=== PATIENT | female | born 1985 | race American Indian/Alaskan Native ===

== ENCOUNTER 2016-10-08 00:08 | Emergency (ER) | payer SELFPAY ==
[2016-10-08 01:16] LABS: Alanine Aminotransferase 10 units/L (7-56); Albumin/Globulin Ratio 1.5 %; Alkaline Phosphatase 32 units/L (35-129); Anion Gap 16 mmol/L; Blood Urea Nitrogen 18 mg/dL (7-17); Calcium 8.5 mg/dL (8.4-10.2); Carbon Dioxide 26 mmol/L (22-30); Chloride 100.2 mmol/L (98-107); Glucose 114 mg/dL (65-100); Lipase 16 units/L (13-60); Potassium 3.7 mmol/L (3.6-5.0); Sodium 138 mmol/L (137-145); Total Protein 6.7 g/dL (6.3-8.2)
[2016-10-08 01:18] LABS: Basophils % (Auto) 0.8 % (0.0-1.8); Eosinophils % (Auto) 2.8 % (0.0-4.3); Hematocrit 38.8 % (30.3-42.9); Hemoglobin 12.5 gm/dl (10.1-14.3); Mean Corpuscular HGB Conc 32 % (30-34); Mean Corpuscular Hemoglobin 28 pg (28-32); Mean Corpuscular Volume 86 fl (79-97); Platelet Count 192 K/mm3 (140-440)
[2016-10-08 02:30] LABS: Bilirubin,Urine NEG (Negative); Blood,Urine MOD (Negative); Ketones,Urine NEG (Negative); Leukocyte Esterase,Urine NEG (Negative); Mucus,Urine FEW /HPF; Nitrite,Urine NEG (Negative); Protein,Urine <15 mg/dL mg/dL (Negative); WBC,Urine < 1.0 /HPF (0.0-6.0)
[2016-10-08] MEDS ORDERED: TYLENOL ONE (02:39)
[2016-10-08] MEDS ORDERED: TYLENOL PO ONE (02:40)
[2016-10-08] MEDS ORDERED: DILAUDID IV ONE ×2 (08:04→09:13)
[2016-10-08 08:05] VITALS: BP 111/60
[2016-10-08] MEDS ORDERED: ZOFRAN ONE (08:05)
[2016-10-08] MEDS ORDERED: NACL 0.9% 1000 ML 1,000 ML ONE (08:06)
--- NOTE | 2016-10-08 08:08 | Emergency Department Report ---
HPI - General Chief Complaint: Abdominal Pain Time Seen by Provider: 10/08/16 07:54 - HPI HPI: This is a 30-year-old Afro-[place] female presents to the emergency department with lower abdominal and pelvic discomfort has been going on for the past 3 weeks. Over this time the patient is also been having vaginal bleeding but denies that she is on her menstrual cycle. She says that she has a history of ovarian cysts in the past and that it appears that caused her to require "emergency surgery" which they took one of the ovaries and the fallopian tube. The patient recently went to [facility] but said that they were unable to do anything for her. She does not currently have a current [employer] or primary care physician. She did not take anything for symptoms prior to presentation. No recent travel or sick contacts at home. The patient still has a uterus and right-sided ovary but says that she had bilateral fallopian tubes and the left ovary surgically removed secondary to the cysts. ED Past Medical Hx - Past Medical History Hx Asthma: Yes Additional medical history: OVARIAN CYST - Surgical History Hx Appendectomy: Yes Additional Surgical History: TUBAL LIGATION. BILATERAL OVARIES REMOVED. BREAST REDUCTION - Social History Smoking Status: Current Some Day Smoker Substance Use Type: None - Medications Home Medications: Home Medications Medication Instructions Recorded Confirmed Last Taken Type Oxycodone HCl/Acetaminophen 1 each PO Q6HR PRN #18 tablet 10/08/16 Unknown Rx [Percocet 7.5/325 mg] ED Review of Systems ROS: Stated complaint: EMESIS/STOMACH PAIN Other details as noted in HPI Physical Exam - Physical Exam Vital Signs: Vital Signs 10/08/16 10/08/16 10/08/16 00:12 02:43 03:38 Temperature 97.4 F L 98.4 F Pulse Rate 84 80 Respiratory 18 18 18 Rate Blood Pressure 127/83 125/75 Blood Pressure [Left] O2 Sat by Pulse 99 100 Oximetry 10/08/16 08:03 Temperature Pulse Rate 76 Respiratory 18 Rate Blood Pressure Blood Pressure 111/60 [Left] O2 Sat by Pulse 99 Oximetry Physical Exam: GENERAL: The patient is well-developed well-nourished. HEENT: Normocephalic. Atraumatic. Extraocular motions are intact. Patient has moist mucous membranes. Pupils equal reactive to light bilaterally. NECK: Supple. Trachea is midline. CHEST/LUNGS: Clear to auscultation. There is no respiratory distress noted. HEART/CARDIOVASCULAR: Regular. There is no tachycardia. There is no gallop rub or murmur. ABDOMEN: Abdomen is soft. Lower abdominal tenderness to palpation. No guarding or rebound tenderness. Patient has normal bowel sounds. There is no abdominal distention. SKIN: Skin is warm and dry. NEURO: The patient is awake, alert, and oriented. The patient is cooperative. The patient has no focal neurologic deficits. The patient has normal speech. MUSCULOSKELETAL: There is no tenderness or deformity. There is no limitation range of motion. There is no evidence of acute injury. ED Course Vital Signs 10/08/16 10/08/16 10/08/16 00:12 02:43 03:38 Temperature 97.4 F L 98.4 F Pulse Rate 84 80 Respiratory 18 18 18 Rate Blood Pressure 127/83 125/75 Blood Pressure [Left] O2 Sat by Pulse 99 100 Oximetry 10/08/16 08:03 Temperature Pulse Rate 76 Respiratory 18 Rate Blood Pressure Blood Pressure 111/60 [Left] O2 Sat by Pulse 99 Oximetry - Consultations Consultation #1: I spoke with the electronic equipment installer for my [employer] service who does not feel that the patient requires admission for her hemorrhagic cyst and uterine fibroid. She recommends follow-up in the office for further evaluation and possible outpatient intervention. 10/08/16 12:47 ED Medical Decision Making - Lab Data Result diagrams: 10/08/16 00:39 10/08/16 00:39 - Radiology Data Radiology results: report reviewed ULTRASOUND PELVIS DUPLEX DOPPLER COMPLETE - TRANSABDOMINAL AND TRANSVAGINAL: INDICATION: Pelvic pain, dysfunctional uterine bleeding. History of ovarian cysts. Left oophorectomy. Appendectomy in 2014. COMPARISON: 04/17/2011. FINDINGS: Transabdominal and transvaginal pelvic sonography with spectral Doppler performed in this patient with LMP of 09/27/2016 and demonstrates a 8.8 x 4.3 x 4 cm anteverted uterus with an approximately 3.8 x 2.3 x 2.7 cm possible upper anterior fibroid, endovaginal image 14. Endometrial stripe thickness approximately 0.8 cm, endovaginal image 8. Small pelvic free fluid. Right ovary is 3.5 x 2.5 x 3 cm with approximately 2.4 x 1.4 cm intrinsic complex area/possible hemorrhagic cyst, endovaginal image 22. Preserved right ovarian blood flow. No evidence to suggest right sided hydrosalpinx at this time. Left ovary again surgically absent. CONCLUSION: 1. An upper anterior uterine fibroid now noted. 2. Complex/hemorrhagic right ovarian cyst with preserved blood flow. No current sonographic evidence to suggest right hydrosalpinx. 3. Left ovary surgically absent. - Medical Decision Making 30-year-old female presents to the emergency department with a three-week history of vaginal bleeding and some chronic lower abdominal/pelvic pains. She has a history of ovarian cysts. The patient has been evaluated by multiple different hospitals for these issues lately but says she is not getting enough pain relief. Her labs are unremarkable including no significant leukocytosis. There is no urinary tract infection. The patient is not but also does not have bilateral fallopian tubes and missing the left ovary. A ultrasound was done that showed a right-sided hemorrhagic complex cyst as well as a anterior uterine fibroid. This is most likely the cause of her discomfort and dysfunction uterine bleeding. Patient was given multiple pain medications. While she continues to say that she is in significant discomfort, the patient does not appear in any distress and is seen texting and talking on her phone. The patient is asking for admission for pain control. For this reason I spoke with the [employer] service who did not feel that the patient required admission and recommends outpatient follow-up. The patient will be given some pain medication to get her to her next appointment and was given multiple [employer] referrals. She will return to the ER with any acute distress. Critical Care Time: No Critical care attestation.: If time is entered above; I have spent that time in minutes in the direct care of this critically ill patient, excluding procedure time. ED Disposition Clinical Impression: Hemorrhagic cyst of right ovary, Dysfunctional uterine bleeding Abdominal pain Qualifiers: Abdominal location: lower abdomen, unspecified Qualified Code(s): R10.30 - Lower abdominal pain, unspecified Uterine fibroid Qualifiers: Uterine leiomyoma location: unspecified location Qualified Code(s): D25.9 - Leiomyoma of uterus, unspecified Disposition: DC-01 TO HOME OR SELFCARE Is pt being admited?: No Condition: Stable Instructions: Ovarian Cyst (ED), Uterine Fibroids (ED), Abdominal Pain (ED) Additional Instructions: Please follow-up with an [employer] service regarding your abnormal vaginal bleeding , right hemorrhagic ovarian cyst and your uterine fibroid. Return to the emergency department with any worsening of her symptoms or any acute distress. You've been prescribed a medication that is sedating. Therefore this medication cannot be mixed with alcohol, or taken prior to driving, working, or being responsible for children. Prescriptions: Oxycodone HCl/Acetaminophen [Percocet 7.5/325 mg] 1 each PO Q6HR PRN #18 tablet PRN Reason: Pain Referrals: [facility] [Provider Group] - 3-5 Days [facility] [Provider Group] - 3-5 Days [facility] [facility] [facility] [Provider Group] - 3-5 Days [facility] [Primary Care Provider] - 3-5 Days Forms: Work/School Release Form(ED) Time of Disposition: 10:11
[2016-10-08] MEDS ORDERED: ZOFRAN IV ONE (08:10)
[2016-10-08] MEDS ORDERED: NACL 0.9% 1000 ML 1,000 ML IV ONE (08:10)
--- NOTE | 2016-10-08 09:20 | Ultrasound Report ---
ULTRASOUND PELVIS DUPLEX DOPPLER COMPLETE - TRANSABDOMINAL AND TRANSVAGINAL: INDICATION: Pelvic pain, dysfunctional uterine bleeding. History of ovarian cysts. Left oophorectomy. Appendectomy in 2014. COMPARISON: 04/17/2011. FINDINGS: Transabdominal and transvaginal pelvic sonography with spectral Doppler performed in this patient with LMP of 09/27/2016 and demonstrates a 8.8 x 4.3 x 4 cm anteverted uterus with an approximately 3.8 x 2.3 x 2.7 cm possible upper anterior fibroid, endovaginal image 14. Endometrial stripe thickness approximately 0.8 cm, endovaginal image 8. Small pelvic free fluid. Right ovary is 3.5 x 2.5 x 3 cm with approximately 2.4 x 1.4 cm intrinsic complex area/possible hemorrhagic cyst, endovaginal image 22. Preserved right ovarian blood flow. No evidence to suggest right sided hydrosalpinx at this time. Left ovary again surgically absent. CONCLUSION: 1. An upper anterior uterine fibroid now noted. 2. Complex/hemorrhagic right ovarian cyst with preserved blood flow. No current sonographic evidence to suggest right hydrosalpinx. 3. Left ovary surgically absent. Thank you for the opportunity to participate in this patient's care.
== END 2016-10-08 10:22 | disposition home or self-care (01) ==
LOC: ED 00:08
DX: D25.9 Leiomyoma of uterus, unspecified (principal); N83.201 Unspecified ovarian cyst, right side; J45.909 Unspecified asthma, uncomplicated; F17.210 Nicotine dependence, cigarettes, uncomplicated; Z98.51 Tubal ligation status
CPT/HCPCS: 36415; 76830; 80053; 81001; 83690; 85025; 93975; 96361; 96374; 96375; 96376; 99284; J1170; J2405; J7030

== ENCOUNTER 2016-10-16 12:59 | Emergency (ER) | payer SELFPAY ==
[2016-10-16 13:07] VITALS: BP 134/76
[2016-10-16 13:53] LABS: Bacteria,Urine 1+ /HPF (Negative); Bilirubin,Urine NEG (Negative); Blood,Urine NEG (Negative); Ketones,Urine NEG (Negative); Leukocyte Esterase,Urine NEG (Negative); Mucus,Urine 3+ /HPF; Nitrite,Urine NEG (Negative); Protein,Urine <15 mg/dL mg/dL (Negative)
--- NOTE | 2016-10-16 13:56 | Emergency Department Report ---
ED Abdominal Pain HPI - General Chief Complaint: Abdominal Pain Stated Complaint: LOW ABDOMINAL PAIN Time Seen by Provider: 10/16/16 14:10 Source: patient, family Mode of arrival: Ambulatory Limitations: No Limitations - History of Present Illness Initial Comments: Patient here complaining of lower abdominal pain for one month. Denies urinary burning frequency or urgency. Denies vaginal discharge or bleeding. Patient able to tolerate oral liquids without any nausea or vomiting. She denies any nausea or vomiting. She was seen here last week for the same complaint. Patient with history of right ovarian cyst. Pain is 10 out of 10 and feel crampy MD Complaint: abdominal pain Onset/Timin -: week(s) Location: LLQ, RLQ Radiation: none Migration to: no migration Severity: severe Severity scale (0 -10): 10 Quality: cramping Consistency: intermittent Worsens With: nothing Context: other (history of ovarian cyst) Associated Symptoms: denies: nausea, vomiting, diarrhea, fever, chills, constipation, dysuria, hematemesis, hematochezia, melena, hematuria, anorexia, syncope Treatments Prior to Arrival: other (none) - Related Data LMP Date: 09/27/16 Previous Rx's Medication Instructions Recorded Last Taken Type Oxycodone HCl/Acetaminophen 1 each PO Q6HR PRN #18 tablet 10/08/16 Unknown Rx [Percocet 7.5/325 mg] HYDROcodone/APAP 5-325 [Crawford 1 each PO Q6HR PRN #6 tablet 10/16/16 Unknown Rx 5/325] Allergies Allergy/AdvReac Type Severity Reaction Status Date / Time ketorolac tromethamine Allergy Anaphylaxis Verified 10/08/16 00:17 [From Toradol] theophylline Allergy Anaphylaxis Verified 10/08/16 00:17 tramadol Allergy Anaphylaxis Verified 10/08/16 02:43 ED Review of Systems ROS: Stated complaint: LOW ABDOMINAL PAIN Other details as noted in HPI Comment: All other systems reviewed and negative Constitutional: denies: chills, fever Eyes: denies: eye pain Respiratory: no symptoms reported Cardiovascular: denies: chest pain, palpitations, edema, syncope Gastrointestinal: abdominal pain. denies: nausea, vomiting, diarrhea, constipation, hematemesis, melena, hematochezia Genitourinary: denies: urgency, dysuria, frequency, hematuria, discharge, abnormal menses, dyspareunia Skin: denies: rash Neurological: denies: headache, weakness, numbness, paresthesias, confusion, abnormal gait, vertigo Psychiatric: denies: anxiety ED Past Medical Hx - Past Medical History Previous Medical History?: Yes Hx Asthma: Yes Additional medical history: OVARIAN CYST, Uterine fibroids - Surgical History Past Surgical History?: Yes Hx Appendectomy: Yes Hx Breast Surgery: Yes (breast reduction) Additional Surgical History: TUBAL LIGATION. BILATERAL OVARIES REMOVED. BREAST REDUCTION - Family History Family history: hypertension - Social History Smoking Status: Never Smoker Substance Use Type: Alcohol, Prescribed - Medications Home Medications: Home Medications Medication Instructions Recorded Confirmed Last Taken Type Oxycodone HCl/Acetaminophen 1 each PO Q6HR PRN #18 tablet 10/08/16 Unknown Rx [Percocet 7.5/325 mg] HYDROcodone/APAP 5-325 [Crawford 1 each PO Q6HR PRN #6 tablet 10/16/16 Unknown Rx 5/325] ED Physical Exam - General Limitations: No Limitations General appearance: alert, in no apparent distress - Head Head exam: Present: atraumatic, normocephalic, normal inspection - Eye Eye exam: Present: normal appearance, PERRL, EOMI Pupils: Present: normal accommodation - ENT ENT exam: Present: normal exam, normal orophraynx, mucous membranes moist, TM's normal bilaterally, normal external ear exam - Neck Neck exam: Present: normal inspection. Absent: tenderness, meningismus, full ROM, lymphadenopathy, thyromegaly - Respiratory Respiratory exam: Present: normal lung sounds bilaterally. Absent: respiratory distress, chest wall tenderness - Cardiovascular Cardiovascular Exam: Present: regular rate, normal rhythm, normal heart sounds - GI/Abdominal GI/Abdominal exam: Present: soft, normal bowel sounds. Absent: distended, tenderness, guarding, rebound, rigid, organomegaly, mass, bruit - External exam: Present: normal external exam. Absent: erythema, swelling, lesions, lacerations, ecchymosis, bleeding Speculum exam: Present: normal speculum exam. Absent: erythema, vaginal discharge, cervical discharge, vaginal bleeding, foreign body, tissue Bi-manual exam: Present: normal bi-manual exam, adnexal mass (right ovarian cyst on CT scan and ultrasound). Absent: cervical motion tendernes, adnexal tenderness, uterine enlargement, uterine tenderness - Extremities Exam Extremities exam: Present: normal inspection, full ROM, normal capillary refill. Absent: tenderness, pedal edema, joint swelling, calf tenderness - Back Exam Back exam: Present: normal inspection, full ROM. Absent: CVA tenderness (L), muscle spasm, paraspinal tenderness, vertebral tenderness, rash noted - Neurological Exam Neurological exam: Present: alert, oriented X3, motor sensory deficit, reflexes normal. Absent: normal gait - Psychiatric Psychiatric exam: Present: normal affect, normal mood - Skin Skin exam: Present: warm, dry, intact, normal color. Absent: rash ED Course Vital Signs 10/16/16 10/16/16 10/16/16 13:02 14:53 16:51 Temperature 98.9 F Pulse Rate 93 H Respiratory 20 18 18 Rate Blood Pressure 134/76 O2 Sat by Pulse 100 Oximetry - Reevaluation(s) Reevaluation #1: 10/16/16 16:00 Patient received morphine 4 mg IV and Zofran 4 mg IV. She voiced that her pain is still present 10/16/16 16:57 Reevaluation #2: 10/16/16 16:57 Patient received Dilaudid 1 mg IV and on route CT scan. Reevaluation #3: 10/16/16 18:53 Condition is stable and in no acute distress. I discussed with her that she needs to follow up with [facility] regarding her fibroid and her ovarian cyst ED Medical Decision Making - Lab Data Result diagrams: 10/16/16 14:06 10/16/16 14:45 Lab Results 10/16/16 10/16/16 10/16/16 Range/Units 13:29 13:29 14:06 WBC 5.9 (4.5-11.0) K/mm3 RBC 4.51 (3.65-5.03) M/mm3 Hgb 12.7 (10.1-14.3) gm/dl Hct 39.5 (30.3-42.9) % MCV 88 (79-97) fl MCH 28 (28-32) pg MCHC 32 (30-34) % RDW 14.8 (13.2-15.2) % Plt Count 177 (140-440) K/mm3 Lymph % (Auto) 21.0 (13.4-35.0) % [place] % (Auto) 10.9 H (0.0-7.3) % Eos % (Auto) 2.3 (0.0-4.3) % Baso % (Auto) 1.0 (0.0-1.8) % Lymph # 1.2 (1.2-5.4) K/mm3 [place] # 0.6 (0.0-0.8) K/mm3 Eos # 0.1 (0.0-0.4) K/mm3 Baso # 0.1 (0.0-0.1) K/mm3 Seg Neutrophils % 64.8 (40.0-70.0) % Seg Neutrophils # 3.8 (1.8-7.7) K/mm3 Sodium (137-145) mmol/L Potassium (3.6-5.0) mmol/L Chloride (98-107) mmol/L Carbon Dioxide (22-30) mmol/L Anion Gap mmol/L BUN (7-17) mg/dL Creatinine (0.7-1.2) mg/dL Estimated GFR ml/min BUN/Creatinine Ratio % Glucose (65-100) mg/dL Calcium (8.4-10.2) mg/dL Total Bilirubin (0.1-1.2) mg/dL AST (5-40) units/L ALT (7-56) units/L Alkaline Phosphatase (35-129) units/L Total Protein (6.3-8.2) g/dL Albumin (3.9-5) g/dL Albumin/Globulin Ratio % Lipase (13-60) units/L Urine Color Yellow (Yellow) Urine Turbidity Clear (Clear) Urine pH 7.0 (5.0-7.0) Ur Specific [place] 1.017 (1.003-1.030) Urine Protein <15 mg/dl (Negative) mg/dL Urine Glucose (UA) Neg (Negative) mg/dL Urine Ketones Neg (Negative) mg/dL Urine Blood Neg (Negative) Urine Nitrite Neg (Negative) Urine Bilirubin Neg (Negative) Urine Urobilinogen 4.0 (<2.0) mg/dL Ur Leukocyte Esterase Neg (Negative) Urine WBC (Auto) 1.0 (0.0-6.0) /HPF Urine RBC (Auto) 3.0 (0.0-6.0) /HPF U Epithel Cells (Auto) 3.0 (0-13.0) /HPF Urine Bacteria (Auto) 1+ (Negative) /HPF Urine Mucus 3+ /HPF Urine HCG, Qual Negative (Negative) 10/16/16 10/16/16 Range/Units 14:06 14:45 WBC (4.5-11.0) K/mm3 RBC (3.65-5.03) M/mm3 Hgb (10.1-14.3) gm/dl Hct (30.3-42.9) % MCV (79-97) fl MCH (28-32) pg MCHC (30-34) % RDW (13.2-15.2) % Plt Count (140-440) K/mm3 Lymph % (Auto) (13.4-35.0) % [place] % (Auto) (0.0-7.3) % Eos % (Auto) (0.0-4.3) % Baso % (Auto) (0.0-1.8) % Lymph # (1.2-5.4) K/mm3 [place] # (0.0-0.8) K/mm3 Eos # (0.0-0.4) K/mm3 Baso # (0.0-0.1) K/mm3 Seg Neutrophils % (40.0-70.0) % Seg Neutrophils # (1.8-7.7) K/mm3 Sodium 141 143 (137-145) mmol/L Potassium 4.3 4.1 (3.6-5.0) mmol/L Chloride 102.4 102.7 (98-107) mmol/L Carbon Dioxide 20 L 26 (22-30) mmol/L Anion Gap 23 18 mmol/L BUN 10 10 (7-17) mg/dL Creatinine 0.6 L 0.6 L (0.7-1.2) mg/dL Estimated GFR > 60 > 60 ml/min BUN/Creatinine Ratio 16.66 16.66 % Glucose 76 70 (65-100) mg/dL Calcium 9.3 9.2 (8.4-10.2) mg/dL Total Bilirubin 0.70 (0.1-1.2) mg/dL AST 11 (5-40) units/L ALT 8 (7-56) units/L Alkaline Phosphatase 31 L (35-129) units/L Total Protein 6.4 (6.3-8.2) g/dL Albumin 4.2 (3.9-5) g/dL Albumin/Globulin Ratio 1.9 % Lipase 17 (13-60) units/L Urine Color (Yellow) Urine Turbidity (Clear) Urine pH (5.0-7.0) Ur Specific [place] (1.003-1.030) Urine Protein (Negative) mg/dL Urine Glucose (UA) (Negative) mg/dL Urine Ketones (Negative) mg/dL Urine Blood (Negative) Urine Nitrite (Negative) Urine Bilirubin (Negative) Urine Urobilinogen (<2.0) mg/dL Ur Leukocyte Esterase (Negative) Urine WBC (Auto) (0.0-6.0) /HPF Urine RBC (Auto) (0.0-6.0) /HPF U Epithel Cells (Auto) (0-13.0) /HPF Urine Bacteria (Auto) (Negative) /HPF Urine Mucus /HPF Urine HCG, Qual (Negative) - Radiology Data Radiology results: image reviewed interpreted by me: Patient had ultrasound on 10/08/2016 which show an upper anterior uterine fibroids. Complex hemorrhagic right ovarian cyst but preserved blood flow. Left ovary sort surgically removed. CT scan of the abdomen and pelvis ordered IV contrast revealed patient with right ovarian cyst measuring 1.6 cm, peritoneum there is moderate amount of free fluid seen in the pelvis and in the lower quadrant more than expected for physiological fluid. Cannot exclude pelvic inflammatory process or possible ruptured ovarian cysts. Moderate amount of free fluid present within expected for physiological fluid. Cannot exclude pelvic inflammatory process. Patient had a pen that to me in 2014. - Medical Decision Making ED course: The patient that she has ovarian cysts on the right side which probably rupture and on her CT scan is showing that she has some free fluid. Patient vital signs are stable and she is not running a fever. Blood count is normal. Previous ultrasound revealed patient had right ovarian cyst. Patient had appendectomy in 2015. Patient said that she wants Percocet and not Crawford because Crawford does not work. Patient states she needs to be admitted if she has free fluid in her pelvis because that'll set up for infection. I instructed the patient that this is not an emergency where she needs to be admitted and this was discussed with attending doctor who is in agreement. An discharge home with prescription for Crawford 5/325 3 tablets and to follow up with [facility] which [facility], follow-up with surgery which is Dr. Mitchell and I also gave her outpatient clinic for follow-up primary care. Critical care attestation.: If time is entered above; I have spent that time in minutes in the direct care of this critically ill patient, excluding procedure time. ED Disposition Clinical Impression: Right ovarian cyst Abdominal pain Qualifiers: Abdominal location: lower abdomen, unspecified Qualified Code(s): R10.30 - Lower abdominal pain, unspecified Uterine fibroid Qualifiers: Uterine leiomyoma location: unspecified location Qualified Code(s): D25.9 - Leiomyoma of uterus, unspecified Disposition: - TO HOME OR SELFCARE Is pt being admited?: No Does the pt Need Aspirin: No Condition: Stable Instructions: Abdominal Pain (ED) Additional Instructions: Follow-up with [facility] as discussed. This will be [facility] and you can call them and let them know that you're seen in the emergency room. You have uterine fibroids and right ovarian cyst he can also follow up with surgery outpatient Your blood work and urinalysis were within normal limits. Please take Crawford as instructed and do not operate heavy machinery or drive a motor vehicle as this medication will cause drowsiness Prescriptions: HYDROcodone/APAP 5-325 [Crawford 5/325] 1 each PO Q6HR PRN #6 tablet PRN Reason: Pain Referrals: JOSE MITCHELL MD [Staff Physician] - 2-3 Days [facility] [Outside] - 2-3 Days [facility] [Provider Group] - 2-3 Days Forms: Accompanied Note, Work/School Release Form(ED)
[2016-10-16 14:21] LABS: Eosinophils % (Auto) 2.3 % (0.0-4.3); Hematocrit 39.5 % (30.3-42.9); Hemoglobin 12.7 gm/dl (10.1-14.3); Mean Corpuscular HGB Conc 32 % (30-34); Mean Corpuscular Hemoglobin 28 pg (28-32); Mean Corpuscular Volume 88 fl (79-97); Platelet Count 177 K/mm3 (140-440); Red Blood Count 4.51 M/mm3 (3.65-5.03); Red Cell Distribution Width 14.8 % (13.2-15.2); White Blood Count 5.9 K/mm3 (4.5-11.0)
[2016-10-16] MEDS ORDERED: ZOFRAN IV ONE (14:34)
[2016-10-16] MEDS ORDERED: MORPHINE IV ONE (14:36)
[2016-10-16 14:45] LABS: Alanine Aminotransferase 8 units/L (7-56); Albumin 4.2 g/dL (3.9-5); Albumin/Globulin Ratio 1.9 %; Alkaline Phosphatase 31 units/L (35-129); Anion Gap 23 mmol/L; BUN/Creatinine Ratio 16.66; Blood Urea Nitrogen 10 mg/dL (7-17); Calcium 9.3 mg/dL (8.4-10.2); Carbon Dioxide 20 mmol/L (22-30); Chloride 102.4 mmol/L (98-107); Glucose 76 mg/dL (65-100); Lipase 17 units/L (13-60); Potassium 4.3 mmol/L (3.6-5.0); Sodium 141 mmol/L (137-145); Total Protein 6.4 g/dL (6.3-8.2)
[2016-10-16 15:17] LABS: Anion Gap 18 mmol/L; BUN/Creatinine Ratio 16.66; Blood Urea Nitrogen 10 mg/dL (7-17); Calcium 9.2 mg/dL (8.4-10.2); Carbon Dioxide 26 mmol/L (22-30); Chloride 102.7 mmol/L (98-107); Glucose 70 mg/dL (65-100); Potassium 4.1 mmol/L (3.6-5.0); Sodium 143 mmol/L (137-145)
[2016-10-16] MEDS ORDERED: NACL ONE (16:39)
[2016-10-16] MEDS ORDERED: DILAUDID ONE (16:40)
[2016-10-16] MEDS ORDERED: DILAUDID IV ONE (16:45)
--- NOTE | 2016-10-16 18:34 | Cat Scan Report ---
FINAL REPORT PROCEDURE: CT ABDOMEN PELVIS W CON TECHNIQUE: Computerized axial tomography of the abdomen and pelvis was performed after the IV injection of iodinated nonionic contrast. HISTORY: abdominal pain COMPARISON: No prior studies are available for comparison. FINDINGS: Visualized lower thorax: No significant abnormality. Liver: Normal size and attenuation. Spleen: Normal size and attenuation. Gallbladder and biliary system: Normal. Pancreas: Normal. Adrenals: Normal. Kidneys: Normal. GI tract: The appendix is not visualized. There are clips seen adjacent to the cecum, possibly related to prior appendectomy. Correlate with patient surgical history. No bowel obstruction or for acute inflammation is identified. Lymph nodes and mesentery: Normal. Vasculature: Normal. Bladder: Normal. Reproductive organs: Probable 1.6 centimeter right ovarian cyst. Peritoneum: There is moderate amount of free fluid seen in the pelvis and in the right lower quadrant, more than expected for physiologic fluid. Cannot exclude pelvic inflammatory process or possible ruptured ovarian cyst. Musculoskeletal structures: No significant abnormality. Other: None. IMPRESSION: Moderate amount of free fluid is present, more than expected for physiologic fluid. Cannot exclude a pelvic inflammatory process or possible ovarian ruptured cyst. Note that the appendix is not visualized/evaluated. If there has not been prior appendectomy, follow-up with oral contrast could be obtained to evaluate the appendix and exclude appendicitis.
== END 2016-10-16 19:29 | disposition home or self-care (01) ==
LOC: ED 12:59
DX: N83.201 Unspecified ovarian cyst, right side (principal); D25.9 Leiomyoma of uterus, unspecified; J45.909 Unspecified asthma, uncomplicated
CPT/HCPCS: 36415; 74177; 80048; 80053; 81001; 81025; 83690; 85025; 96374; 96375; 99284; J1170; J2270; J2405; Q9967

== ENCOUNTER 2017-09-02 17:52 | Emergency (ER) | payer OTHER ==
[2017-09-02 18:26] LABS: Hematocrit 39.8 % (30.3-42.9); Mean Corpuscular HGB Conc 33 % (30-34); Mean Corpuscular Hemoglobin 28 pg (28-32); Mean Corpuscular Volume 87 fl (79-97); Platelet Count 172 K/mm3 (140-440); Red Blood Count 4.55 M/mm3 (3.65-5.03)
[2017-09-02 18:45] LABS: BUN/Creatinine Ratio 35; Blood Urea Nitrogen 21 mg/dL (7-17); Hemolysis Index 5
[2017-09-02 19:09] LABS: HCG Qualitative,Urine Negative (Negative)
[2017-09-02 19:14] LABS: Bilirubin,Urine NEG (Negative); Blood,Urine NEG (Negative); Color,Urine Yellow (Yellow); Mucus,Urine 3+ /HPF; Urobilinogen,Urine < 2.0 mg/dL (<2.0)
[2017-09-03 00:13] VITALS: BP 119/75
== END 2017-09-03 01:07 | disposition left against medical advice (07) ==
LOC: ED 17:52
DX: R10.30 Lower abdominal pain, unspecified (principal); Z53.21 Procedure and treatment not carried out due to patient leaving prior to being seen by health care provider
CPT/HCPCS: 36415; 80048; 81001; 81025; 85027

== ENCOUNTER 2017-09-03 16:31 | Emergency (ER) | payer OTHER ==
[2017-09-03 16:45] VITALS: BP 114/71
[2017-09-04] MEDS ORDERED: TYLENOL PO ONE (01:50)
--- NOTE | 2017-09-04 01:59 | Emergency Department Report ---
ED Abdominal Pain HPI - General Chief Complaint: Abdominal Pain Stated Complaint: ABD PAIN Time Seen by Provider: 09/04/17 01:36 Source: patient, EMS Mode of arrival: Ambulatory Limitations: No Limitations - History of Present Illness Initial Comments: Patient is 31 years old female with history of ovarian cyst. Presented to the ER complaining of more than 1 month history of lower abdominal pain mainly suprapubic that comes and goes. Patient denied any fever, nausea vomiting. Patient is nontoxic in no acute distress. She denied any diarrhea or urinary symptoms. Patient was seen here a few days ago had a CT abdomen and pelvis which she did not show any acute finding except for possible ovarian cyst on the right side. Patient is demanding certain kind of pain medicine mainly Percocets and Dilaudid. She is allergic to Toradol and tramadol. Patient with obvious pain medicine seeking behavior. MD Complaint: abdominal pain - Related Data Previous Rx's Medication Instructions Recorded Last Taken Type Oxycodone HCl/Acetaminophen 1 each PO Q6HR PRN #18 tablet 10/08/16 Unknown Rx [Percocet 7.5/325 mg] Ciprofloxacin HCl [Ciprofloxacin 500 mg PO Q12HR #20 tab 10/16/16 Unknown Rx TAB] HYDROcodone/APAP 5-325 [[place] 1 each PO Q6HR PRN #6 tablet 10/16/16 Unknown Rx 5/325] metroNIDAZOLE [Flagyl] 500 mg PO Q8HR #30 tablet 10/16/16 Unknown Rx Allergies Allergy/AdvReac Type Severity Reaction Status Date / Time ketorolac tromethamine Allergy Anaphylaxis Verified 10/08/16 00:17 [From Toradol] theophylline Allergy Anaphylaxis Verified 10/08/16 00:17 tramadol Allergy Anaphylaxis Verified 10/08/16 02:43 ED Review of Systems ROS: Stated complaint: ABD PAIN Other details as noted in HPI Comment: All other systems reviewed and negative Constitutional: denies: chills, fever Respiratory: denies: cough, orthopnea, shortness of breath, SOB with exertion, SOB at rest, wheezing Cardiovascular: denies: chest pain, palpitations, dyspnea on exertion, orthopnea , paroxysmal nocturnal dyspnea Gastrointestinal: abdominal pain. denies: nausea, vomiting, diarrhea, constipation, hematemesis, melena, hematochezia Neurological: denies: headache, weakness, numbness, paresthesias ED Past Medical Hx - Past Medical History Previous Medical History?: Yes Hx Asthma: Yes Additional medical history: OVARIAN CYST, Uterine fibroids - Surgical History Past Surgical History?: Yes Hx Appendectomy: Yes Hx Breast Surgery: Yes (breast reduction) Additional Surgical History: TUBAL LIGATION. left OVARy REMOVED. BREAST REDUCTION - Social History Smoking Status: Never Smoker Substance Use Type: Alcohol - Medications Home Medications: Home Medications Medication Instructions Recorded Confirmed Last Taken Type Oxycodone HCl/Acetaminophen 1 each PO Q6HR PRN #18 tablet 10/08/16 Unknown Rx [Percocet 7.5/325 mg] Ciprofloxacin HCl [Ciprofloxacin 500 mg PO Q12HR #20 tab 10/16/16 Unknown Rx TAB] HYDROcodone/APAP 5-325 [[place] 1 each PO Q6HR PRN #6 tablet 10/16/16 Unknown Rx 5/325] metroNIDAZOLE [Flagyl] 500 mg PO Q8HR #30 tablet 10/16/16 Unknown Rx ED Physical Exam - General Limitations: No Limitations General appearance: alert, in no apparent distress - Head Head exam: Present: atraumatic, normocephalic, normal inspection - ENT ENT exam: Present: normal exam, normal orophraynx, mucous membranes moist - Respiratory Respiratory exam: Present: normal lung sounds bilaterally. Absent: respiratory distress, wheezes, rales, rhonchi, stridor, chest wall tenderness, accessory muscle use, decreased breath sounds, prolonged expiratory - Cardiovascular Cardiovascular Exam: Present: regular rate, normal rhythm, normal heart sounds - GI/Abdominal GI/Abdominal exam: Present: soft, normal bowel sounds. Absent: distended, tenderness, guarding, rebound, rigid, organomegaly, mass, bruit, pulsatile mass , hernia - Extremities Exam Extremities exam: Present: normal inspection, full ROM, normal capillary refill - Back Exam Back exam: Present: normal inspection, full ROM. Absent: CVA tenderness (R), CVA tenderness (L), muscle spasm, paraspinal tenderness, vertebral tenderness - Neurological Exam Neurological exam: Present: alert, oriented X3, CN II-XII intact, normal gait, reflexes normal - Skin Skin exam: Present: warm, intact, normal color. Absent: cyanosis, diaphoretic, erythema, urticaria ED Course Vital Signs 09/03/17 09/04/17 16:42 01:58 Temperature 99 F Pulse Rate 81 Respiratory 20 16 Rate Blood Pressure 114/71 O2 Sat by Pulse 99 Oximetry Critical care attestation.: If time is entered above; I have spent that time in minutes in the direct care of this critically ill patient, excluding procedure time. ED Disposition Clinical Impression: Abdominal pain Disposition: [id number] LEFT AGAINST MED ADVICE Is pt being admited?: No Condition: Stable Instructions: Abdominal Pain (ED) Referrals: NYDIA HAMMER MD [Primary Care Provider] - 3-5 Days Forms: AMA Form
== END 2017-09-04 02:30 | disposition left against medical advice (07) ==
LOC: ED 16:31
DX: R10.30 Lower abdominal pain, unspecified (principal); J45.909 Unspecified asthma, uncomplicated; Z98.51 Tubal ligation status; Z87.42 Personal history of other diseases of the female genital tract; Z90.49 Acquired absence of other specified parts of digestive tract; Z88.6 Allergy status to analgesic agent; Z88.8 Allergy status to other drugs, medicaments and biological substances
CPT/HCPCS: 99284

== ENCOUNTER 2019-05-08 18:39 | Emergency (ER) | payer OTHER ==
[2019-05-08] MEDS ORDERED: ACETAMINOPHEN 500 MG TAB PO ONE (20:13)
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
[2019-05-08 21:05] LABS: Basophils % (Auto) 0.3 % (0.0-1.8); Eosinophils % (Auto) 0.9 % (0.0-4.3); Hematocrit 42.4 % (30.3-42.9); Hemoglobin 13.6 gm/dl (10.1-14.3); Lymphocytes # (Auto) 1.6 K/mm3 (1.2-5.4); Lymphocytes % (Auto) 33.3 % (13.4-35.0); Mean Corpuscular HGB Conc 32 % (30-34); Mean Corpuscular Volume 89 fl (79-97); Monocytes # (Auto) 0.5 K/mm3 (0.0-0.8); Monocytes % (Auto) 9.7 % (0.0-7.3); Platelet Count 137 K/mm3 (140-440); Red Blood Count 4.78 M/mm3 (3.65-5.03); Red Cell Distribution Width 14.2 % (13.2-15.2)
[2019-05-08 21:25] LABS: Alanine Aminotransferase 30 units/L (7-56); Albumin 4.3 g/dL (3.9-5); BUN/Creatinine Ratio 30; Blood Urea Nitrogen 18 mg/dL (7-17); Calcium 9.1 mg/dL (8.4-10.2); Hemolysis Index 13
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
[2019-05-08] MEDS ORDERED: ACETAMINOPHEN 500 MG TAB ONE (22:50)
[2019-05-08] MEDS ORDERED: CYCLOBENZAPRINE 10 MG TAB PO ONE (22:56)
[2019-05-08] MEDS ORDERED: diphenhydrAMINE 25 MG CAP PO ONE (22:56)
[2019-05-08] MEDS ORDERED: HYDROcodone/ACETAMINOPHEN 5-325 MG TAB PO ONE (22:56)
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
[2019-05-08 23:57] VITALS: BP 116/75
== END 2019-05-08 23:57 | disposition home or self-care (01) ==
LOC: ED 18:39
DX: S16.1XXA Strain of muscle, fascia and tendon at neck level, initial encounter (principal); S39.012A Strain of muscle, fascia and tendon of lower back, initial encounter; M25.50 Pain in unspecified joint; N83.8 Other noninflammatory disorders of ovary, fallopian tube and broad ligament; J45.909 Unspecified asthma, uncomplicated; Z90.49 Acquired absence of other specified parts of digestive tract; Z90.710 Acquired absence of both cervix and uterus; Z98.890 Other specified postprocedural states; F17.200 Nicotine dependence, unspecified, uncomplicated; Z79.899 Other long term (current) drug therapy; Z88.8 Allergy status to other drugs, medicaments and biological substances; Z88.4 Allergy status to anesthetic agent; V49.49XA Driver injured in collision with other motor vehicles in traffic accident, initial encounter; Y93.89 Activity, other specified; Y92.488 Other paved roadways as the place of occurrence of the external cause; Y99.8 Other external cause status
CPT/HCPCS: 36415; 70450; 72125; 73030; 74177; 80053; 83690; 84703; 85025; 99284; Q9967

== ENCOUNTER 2019-07-22 22:22 | Emergency (ER) | payer SELFPAY ==
[2019-07-22 22:40] VITALS: BP 112/67
== END 2019-07-23 00:46 | disposition left against medical advice (07) ==
LOC: ED 22:22
DX: M25.512 Pain in left shoulder (principal); Z53.21 Procedure and treatment not carried out due to patient leaving prior to being seen by health care provider

== ENCOUNTER 2019-07-27 04:25 | Emergency (ER) | payer SELFPAY ==
--- NOTE | 2019-07-27 05:54 | XRay Report ---
RIGHT HAND 3 VIEWS 0503 INDICATION: pain and swelling to hand COMPARISON: None available. FINDINGS: The little finger appears flex/contracted. Thumb is strongly flexed. No obvious fracture or dislocation is seen however. Signer Name: Casey Taylor MD Signed: 07/27/2019 5:50 AM Workstation Name: [id number]
[2019-07-27] MEDS ORDERED: oxyCODONE 5 MG TAB PO ONE (05:56)
--- NOTE | 2019-07-27 06:12 | Emergency Department Report ---
ED Upper Extremity Inj HPI - General Chief Complaint: Extremity Injury, Upper Stated Complaint: RT FINGER INJURY Time Seen by Provider: 07/27/19 04:42 Source: patient Mode of arrival: Ambulatory Limitations: No Limitations - History of Present Illness Initial Comments: Patient is a 33-year-old female presents emergency room with complaints of a right middle finger injury that occurred just prior to arrival. She states that she was at work when the power went out. She states she was working on a conveyor belt and had a box in her hand. She states that the box fell and she felt a popping sensation in her right middle finger. She states that she has not been able to move it secondary to discomfort. She denies any numbness or weakness. She denies ever injuring in the past. She denies any past medical history. She has an allergy to Tylenol, Toradol, theophylline, tramadol. She states that she does not have an allergy to oxycodone alone. - Related Data Previous Rx's Medication Instructions Recorded Last Taken Type Oxycodone HCl/Acetaminophen 1 each PO Q6HR PRN #18 tablet 10/08/16 Unknown Rx [Percocet 7.5/325 mg] Ciprofloxacin HCl [Ciprofloxacin 500 mg PO Q12HR #20 tab 10/16/16 Unknown Rx TAB] HYDROcodone/APAP 5-325 [[place] 1 each PO Q6HR PRN #6 tablet 10/16/16 Unknown Rx 5/325] metroNIDAZOLE [Flagyl] 500 mg PO Q8HR #30 tablet 10/16/16 Unknown Rx Cyclobenzaprine [Flexeril] 10 mg PO TID PRN #12 tablet 05/08/19 Unknown Rx Allergies Allergy/AdvReac Type Severity Reaction Status Date / Time acetaminophen [From Percocet] Allergy Angioedema Verified 05/08/19 22:50 ketorolac tromethamine Allergy Anaphylaxis Verified 10/08/16 00:17 [From Toradol] theophylline Allergy Anaphylaxis Verified 10/08/16 00:17 tramadol Allergy Anaphylaxis Verified 10/08/16 02:43 ED Review of Systems ROS: Stated complaint: RT FINGER INJURY Other details as noted in HPI Comment: All other systems reviewed and negative ED Past Medical Hx - Past Medical History Previous Medical History?: Yes Hx Asthma: Yes Additional medical history: OVARIAN CYST, Uterine fibroids - Surgical History Past Surgical History?: Yes Hx Appendectomy: Yes Hx Breast Surgery: Yes (breast reduction) Additional Surgical History: Hysterectomy. tubal ligation - Social History Smoking Status: Current Every Day Smoker Substance Use Type: None - Medications Home Medications: Home Medications Medication Instructions Recorded Confirmed Last Taken Type Oxycodone HCl/Acetaminophen 1 each PO Q6HR PRN #18 tablet 10/08/16 Unknown Rx [Percocet 7.5/325 mg] Ciprofloxacin HCl [Ciprofloxacin 500 mg PO Q12HR #20 tab 10/16/16 Unknown Rx TAB] HYDROcodone/APAP 5-325 [[place] 1 each PO Q6HR PRN #6 tablet 10/16/16 Unknown Rx 5/325] metroNIDAZOLE [Flagyl] 500 mg PO Q8HR #30 tablet 10/16/16 Unknown Rx Cyclobenzaprine [Flexeril] 10 mg PO TID PRN #12 tablet 05/08/19 Unknown Rx ED Physical Exam - General Limitations: No Limitations General appearance: alert, in no apparent distress - Head Head exam: Present: atraumatic, normocephalic - Eye Eye exam: Present: normal appearance - ENT ENT exam: Present: mucous membranes moist - Extremities Exam Extremities exam: Present: other (ttp and edema present to the right middle finger MCP joint, no ttp to the rest of the right middle finger, decreased ROM of the right middle finger secondary pain, pt is able to fully flex and extend the right thumb and pinky, no obvious deformity, neurovascularly intact, no ttp of the right hand or wrist) - Neurological Exam Neurological exam: Present: alert, oriented X3 - Psychiatric Psychiatric exam: Present: normal affect, normal mood - Skin Skin exam: Present: warm, dry, intact ED Course Vital Signs 07/27/19 07/27/19 07/27/19 04:28 06:02 06:32 Temperature 98.3 F 98.2 F Pulse Rate 104 H 84 Respiratory 18 19 16 Rate Blood Pressure 127/84 Blood Pressure 125/64 [Left] O2 Sat by Pulse 100 98 Oximetry 07/27/19 06:33 Temperature Pulse Rate Respiratory 16 Rate Blood Pressure Blood Pressure [Left] O2 Sat by Pulse Oximetry ED Medical Decision Making - Radiology Data Radiology results: report reviewed RIGHT HAND 3 VIEWS 0503 INDICATION: pain and swelling to hand COMPARISON: None available. FINDINGS: The little finger appears flex/contracted. Thumb is strongly flexed. No obvious fracture or dislocation is seen however. Signer Name: Casey Taylor MD Signed: 07/27/2019 5:50 AM Workstation Name: [id number] Transcribed By: GJ Dictated By: Casey Taylor MD Electronically Authenticated By: Casey Taylor MD Signed Date/Time: 07/27/19549 DD/ 7 TD/TT: - Medical Decision Making Patient is a 33-year-old female presents emergency room with complaints of a right middle finger injury that occurred just prior to arrival. She states that she was at work when the power went out. She states she was working on a conveyor belt and had a box in her hand. She states that the box fell and she felt a popping sensation in her right middle finger. She states that she has not been able to move it secondary to discomfort. She denies any numbness or weakness. She denies ever injuring in the past. She denies any past medical history. She has an allergy to Tylenol, Toradol, theophylline, tramadol. She states that she does not have an allergy to oxycodone alone. She will vitals with elevated heart rate which improved to normal upon repeat. On exam:ttp and edema present to the right middle finger MCP joint, no ttp to the rest of the right middle finger, decreased ROM of the right middle finger secondary pain, pt is able to fully flex and extend the right thumb and pinky, no obvious deformity, neurovascularly intact, no ttp of the right hand or wrist. XR right hand: The little finger appears flex/contracted. Thumb is strongly flexed. No obvious fracture or dislocation is seen however. Little finger and thumb x-ray findings due to patient positioning, she is able to fully flex and extend both the pinky and the thumb. Patient placed in finger splint, remained neurovascularly intact. Patient's pain treated in the emergency department as she states she did not drive. Patient will be referred to orthopedic doctor. Advised patient May take ibuprofen as needed for pain. May ice for 15 minutes at a time. Follow-up with orthopedic doctor in the next 2 to 3 days for reexamination. Return to the emergency room for any new or worsening symptoms. - Differential Diagnosis Strain, sprain, fracture, dislocation Critical care attestation.: If time is entered above; I have spent that time in minutes in the direct care of this critically ill patient, excluding procedure time. ED Disposition Clinical Impression: Pain of right middle finger Disposition: DC-01 TO HOME OR SELFCARE Is pt being admited?: No Does the pt Need Aspirin: No Condition: Stable Instructions: Finger Sprain (ED) Additional Instructions: May take ibuprofen as needed for pain. May ice for 15 minutes at a time. Follow-up with orthopedic doctor in the next 2 to 3 days for reexamination. Return to the emergency room for any new or worsening symptoms. Referrals: COLEMAN REYNOSO MD [Staff Physician] - 2-3 Days [facility] [Provider Group] - 2-3 Days Forms: Work/School Release Form(ED) Time of Disposition: 06:11 Print Language: FIJIAN
[2019-07-27 06:33] VITALS: BP 125/64
== END 2019-07-27 06:34 | disposition home or self-care (01) ==
LOC: ED 04:25
DX: M25.541 Pain in joints of right hand (principal); J45.909 Unspecified asthma, uncomplicated; F17.200 Nicotine dependence, unspecified, uncomplicated; Z79.899 Other long term (current) drug therapy; Z88.8 Allergy status to other drugs, medicaments and biological substances; Z90.49 Acquired absence of other specified parts of digestive tract; Z90.710 Acquired absence of both cervix and uterus; Z98.51 Tubal ligation status

== ENCOUNTER 2019-08-19 01:40 | Emergency (ER) | payer SELFPAY ==
[2019-08-19 02:13] LABS: Basophils % (Auto) 0.5 % (0.0-1.8); Eosinophils # (Auto) 0.2 K/mm3 (0.0-0.4); Eosinophils % (Auto) 2.4 % (0.0-4.3); Hematocrit 39.6 % (30.3-42.9); Hemoglobin 12.9 gm/dl (10.1-14.3); Lymphocytes # (Auto) 1.6 K/mm3 (1.2-5.4); Lymphocytes % (Auto) 20.2 % (13.4-35.0); Mean Corpuscular HGB Conc 33 % (30-34); Mean Corpuscular Volume 90 fl (79-97); Monocytes # (Auto) 0.7 K/mm3 (0.0-0.8); Monocytes % (Auto) 8.7 % (0.0-7.3); Platelet Count 161 K/mm3 (140-440); Red Blood Count 4.39 M/mm3 (3.65-5.03)
[2019-08-19 02:19] LABS: Bilirubin,Urine NEG (Negative); Blood,Urine NEG (Negative); Color,Urine Yellow (Yellow); Mucus,Urine FEW /HPF; Protein,Urine <15 mg/dL mg/dL (Negative)
[2019-08-19 02:30] LABS: Alanine Aminotransferase 16 units/L (7-56); BUN/Creatinine Ratio 33; Blood Urea Nitrogen 23 mg/dL (7-17); Calcium 9.2 mg/dL (8.4-10.2); Hemolysis Index 8
[2019-08-19] MEDS ORDERED: ALUM-MAG HYDROXIDE-SIMETHICONE 200-200-20MG/5ML ORAL LIQD 30 ML PO ONE (03:30)
[2019-08-19] MEDS ORDERED: FAMOTIDINE 20 MG TAB PO ONE (03:30)
[2019-08-19] MEDS ORDERED: ONDANSETRON 4 MG ODT TAB PO ONE (03:30)
[2019-08-19] MEDS ORDERED: HYOSCYAMINE SUBL 0.125 MG TAB SL ONE (03:30)
--- NOTE | 2019-08-19 03:36 | Emergency Department Report ---
ED Abdominal Pain HPI - General Chief Complaint: Abdominal Pain Stated Complaint: ABDOMINAL PAIN Time Seen by Provider: 08/19/19 03:09 Source: patient Mode of arrival: Ambulatory Limitations: No Limitations - History of Present Illness Initial Comments: Patient is a 33-year-old female presents emergency room complaints of upper abdominal pain that began 3 weeks ago. She states for the last 3 to 4 days she has had associated nausea vomiting. She states that she has had approximately 2 episodes of vomiting a day. She denies any hematemesis. She states that she has also felt constipated over the last week. She states that she had a bowel movement yesterday. She states she is able to pass gas without difficulty. She states that she is able to tolerate p.o. intake. She denies any diarrhea, fever, urinary symptoms, hematochezia, melena. She has a past medical history of asthma. She has an abdominal surgical history of hysterectomy, appendectomy, tubal ligation. Patient was evaluated in the emergency department on 08/17/2019 for the same complaint and had normal laboratory studies and a normal abdominal ultrasound at that time. Patient left AMA prior to receiving her ultrasound results and was not prescribed medications. - Related Data Previous Rx's Medication Instructions Recorded Last Taken Type Oxycodone HCl/Acetaminophen 1 each PO Q6HR PRN #18 tablet 10/08/16 Unknown Rx [Percocet 7.5/325 mg] Ciprofloxacin HCl [Ciprofloxacin 500 mg PO Q12HR #20 tab 10/16/16 Unknown Rx TAB] HYDROcodone/APAP 5-325 [[place] 1 each PO Q6HR PRN #6 tablet 10/16/16 Unknown Rx 5/325] metroNIDAZOLE [Flagyl] 500 mg PO Q8HR #30 tablet 10/16/16 Unknown Rx Cyclobenzaprine [Flexeril] 10 mg PO TID PRN #12 tablet 05/08/19 Unknown Rx Docusate Sodium [Colace] 100 mg PO BID PRN #20 capsule 08/19/19 Unknown Rx Famotidine [Pepcid] 40 mg PO QHS #30 tablet 08/19/19 Unknown Rx Ondansetron [Zofran Odt] 4 mg PO Q8HR PRN #12 tab.rapdis 08/19/19 Unknown Rx Polyethylene Glycol 3350 [Miralax] 7 gm PO DAILY PRN #1 powder 08/19/19 Unknown Rx Allergies Allergy/AdvReac Type Severity Reaction Status Date / Time acetaminophen [From Percocet] Allergy Angioedema Verified 05/08/19 22:50 ketorolac tromethamine Allergy Anaphylaxis Verified 10/08/16 00:17 [From Toradol] theophylline Allergy Anaphylaxis Verified 10/08/16 00:17 tramadol Allergy Anaphylaxis Verified 10/08/16 02:43 ED Review of Systems ROS: Stated complaint: ABDOMINAL PAIN Other details as noted in HPI Comment: All other systems reviewed and negative ED Past Medical Hx - Past Medical History Previous Medical History?: Yes Hx Asthma: Yes Additional medical history: OVARIAN CYST, Uterine fibroids - Surgical History Past Surgical History?: Yes Hx Appendectomy: Yes Hx Breast Surgery: Yes (breast reduction) Additional Surgical History: Hysterectomy. tubal ligation - Social History Smoking Status: Never Smoker Substance Use Type: Alcohol - Medications Home Medications: Home Medications Medication Instructions Recorded Confirmed Last Taken Type Oxycodone HCl/Acetaminophen 1 each PO Q6HR PRN #18 tablet 10/08/16 Unknown Rx [Percocet 7.5/325 mg] Ciprofloxacin HCl [Ciprofloxacin 500 mg PO Q12HR #20 tab 10/16/16 Unknown Rx TAB] HYDROcodone/APAP 5-325 [[place] 1 each PO Q6HR PRN #6 tablet 10/16/16 Unknown Rx 5/325] metroNIDAZOLE [Flagyl] 500 mg PO Q8HR #30 tablet 10/16/16 Unknown Rx Cyclobenzaprine [Flexeril] 10 mg PO TID PRN #12 tablet 05/08/19 Unknown Rx Docusate Sodium [Colace] 100 mg PO BID PRN #20 capsule 08/19/19 Unknown Rx Famotidine [Pepcid] 40 mg PO QHS #30 tablet 08/19/19 Unknown Rx Ondansetron [Zofran Odt] 4 mg PO Q8HR PRN #12 tab.rapdis 08/19/19 Unknown Rx Polyethylene Glycol 3350 [Miralax] 7 gm PO DAILY PRN #1 powder 08/19/19 Unknown Rx ED Physical Exam - General Limitations: No Limitations General appearance: alert, in no apparent distress - Head Head exam: Present: atraumatic, normocephalic - Eye Eye exam: Present: normal appearance - ENT ENT exam: Present: mucous membranes moist - Respiratory Respiratory exam: Present: normal lung sounds bilaterally. Absent: respiratory distress, wheezes, rales, rhonchi, stridor, chest wall tenderness, accessory muscle use, decreased breath sounds, prolonged expiratory - Cardiovascular Cardiovascular Exam: Present: regular rate, normal rhythm, normal heart sounds. Absent: systolic murmur, diastolic murmur, rubs, gallop - GI/Abdominal GI/Abdominal exam: Present: soft, tenderness (mild epigastric), normal bowel sounds, other (negative murphys sign). Absent: distended, guarding, rebound, rigid - Neurological Exam Neurological exam: Present: alert, oriented X3 - Psychiatric Psychiatric exam: Present: normal affect, normal mood - Skin Skin exam: Present: warm, dry, intact ED Course Vital Signs 08/19/19 08/19/19 01:44 05:05 Temperature 98.7 F Pulse Rate 87 82 Respiratory 18 16 Rate Blood Pressure 130/78 O2 Sat by Pulse 100 99 Oximetry ED Medical Decision Making - Lab Data Result diagrams: 08/19/19 01:53 08/19/19 01:53 Lab Results 08/19/19 08/19/19 08/19/19 Range/Units 01:53 01:53 01:56 WBC 7.9 (4.5-11.0) K/mm3 RBC 4.39 (3.65-5.03) M/mm3 Hgb 12.9 (10.1-14.3) gm/dl Hct 39.6 (30.3-42.9) % MCV 90 (79-97) fl MCH 29 (28-32) pg MCHC 33 (30-34) % RDW 14.0 (13.2-15.2) % Plt Count 161 (140-440) K/mm3 Lymph % (Auto) 20.2 (13.4-35.0) % [place] % (Auto) 8.7 H (0.0-7.3) % Eos % (Auto) 2.4 (0.0-4.3) % Baso % (Auto) 0.5 (0.0-1.8) % Lymph # 1.6 (1.2-5.4) K/mm3 [place] # 0.7 (0.0-0.8) K/mm3 Eos # 0.2 (0.0-0.4) K/mm3 Baso # 0.0 (0.0-0.1) K/mm3 Seg Neutrophils % 68.2 (40.0-70.0) % Seg Neutrophils # 5.4 (1.8-7.7) K/mm3 Sodium 141 (137-145) mmol/L Potassium 3.8 (3.6-5.0) mmol/L Chloride 103.4 (98-107) mmol/L Carbon Dioxide 26 (22-30) mmol/L Anion Gap 15 mmol/L BUN 23 H (7-17) mg/dL Creatinine 0.7 (0.7-1.2) mg/dL Estimated GFR > 60 ml/min BUN/Creatinine Ratio 33 % Glucose 89 (65-100) mg/dL Calcium 9.2 (8.4-10.2) mg/dL Total Bilirubin 0.30 (0.1-1.2) mg/dL AST 17 (5-40) units/L ALT 16 (7-56) units/L Alkaline Phosphatase 36 (35-129) units/L Total Protein 6.9 (6.3-8.2) g/dL Albumin 4.0 (3.9-5) g/dL Albumin/Globulin Ratio 1.4 % Lipase 37 (13-60) units/L Urine Color Yellow (Yellow) Urine Turbidity Slightly-cloudy (Clear) Urine pH 7.0 (5.0-7.0) Ur Specific [place] 1.019 (1.003-1.030) Urine Protein <15 mg/dl (Negative) mg/dL Urine Glucose (UA) Neg (Negative) mg/dL Urine Ketones Neg (Negative) mg/dL Urine Blood Neg (Negative) Urine Nitrite Neg (Negative) Urine Bilirubin Neg (Negative) Urine Urobilinogen 4.0 (<2.0) mg/dL Ur Leukocyte Esterase Tr (Negative) Urine WBC (Auto) 3.0 (0.0-6.0) /HPF Urine RBC (Auto) 2.0 (0.0-6.0) /HPF U Epithel Cells (Auto) 8.0 (0-13.0) /HPF Urine Mucus Few /HPF - Medical Decision Making Patient is a 33-year-old female presents emergency room complaints of upper abdominal pain that began 3 weeks ago. She states for the last 3 to 4 days she has had associated nausea vomiting. She states that she has had approximately 2 episodes of vomiting a day. She denies any hematemesis. She states that she has also felt constipated over the last week. She states that she had a bowel movement yesterday. She states she is able to pass gas without difficulty. She states that she is able to tolerate p.o. intake. She denies any diarrhea, fever, urinary symptoms, hematochezia, melena. She has a past medical history of asthma. She has an abdominal surgical history of hysterectomy, appendectomy, tubal ligation. Patient was evaluated in the emergency department on 08/17/2019 for the same complaint and had normal laboratory studies and a normal abdominal ultrasound at that time. Patient left AMA prior to receiving her ultrasound results and was not prescribed medications. Vitals are normal. On exam mild epigastric tenderness to palpation, no guarding, no rebound, negative Ca sign, no peritoneal signs, normal bowel sounds. Labs are normal. UA is within normal limits. Patient given Pepcid, Maalox, Zofran, Levsin and symptoms improved. She was able to tolerate p.o. intake without any difficulty. Patient given prescription for Pepcid, Zofran, Colace, MiraLAX. Advised patient Please take medication as prescribed. Increase your water intake. Please follow the diet for acid reflux and ulcers. Increase your fiber intake. Follow-up with a GI doctor. Follow-up with a primary care doctor. Return to the emergency room for any new or worsening symptoms - Differential Diagnosis GERD, PUD, H. pylori, cholecystitis, cholelithiasis, pancreatitis, SBO Critical care attestation.: If time is entered above; I have spent that time in minutes in the direct care of this critically ill patient, excluding procedure time. ED Disposition Clinical Impression: Upper abdominal pain Nausea and vomiting Qualifiers: Vomiting type: unspecified Vomiting Intractability: non-intractable Qualified Code(s): R11.2 - Nausea with vomiting, unspecified Constipation Qualifiers: Constipation type: unspecified constipation type Qualified Code(s): K59.00 - Constipation, unspecified Disposition: DC-01 TO HOME OR SELFCARE Is pt being admited?: No Does the pt Need Aspirin: No Condition: Stable Instructions: Peptic Ulcer (ED), Constipation (ED), High Fiber Diet (ED), Diet for Ulcers and Gastritis (ED) Additional Instructions: Please take medication as prescribed. Increase your water intake. Please follow the diet for acid reflux and ulcers. Increase your fiber intake. Follow-up with a GI doctor. Follow-up with a primary care doctor. Return to the emergency room for any new or worsening symptoms Prescriptions: Famotidine [Pepcid] 40 mg PO QHS #30 tablet Docusate Sodium [Colace] 100 mg PO BID PRN #20 capsule PRN Reason: constipation Polyethylene Glycol 3350 [Miralax] 7 gm PO DAILY PRN #1 powder PRN Reason: Constipation Ondansetron [Zofran Odt] 4 mg PO Q8HR PRN #12 tab.rapdis PRN Reason: Nausea And Vomiting Referrals: [facility] [Provider Group] - 3-5 Days BOBBY GAUTAM MD [Staff Physician] - 3-5 Days Forms: Work/School Release Form(ED) Time of Disposition: 04:23 Print Language: PALESTINIAN
[2019-08-19 03:37] VITALS: BP 130/78
== END 2019-08-19 05:03 | disposition home or self-care (01) ==
LOC: ED 01:40
DX: K59.00 Constipation, unspecified (principal); R10.10 Upper abdominal pain, unspecified; R11.2 Nausea with vomiting, unspecified; J45.909 Unspecified asthma, uncomplicated; Z90.710 Acquired absence of both cervix and uterus; Z90.49 Acquired absence of other specified parts of digestive tract; Z98.890 Other specified postprocedural states; Z79.899 Other long term (current) drug therapy; Z98.51 Tubal ligation status; Z88.8 Allergy status to other drugs, medicaments and biological substances
CPT/HCPCS: 36415; 80053; 81001; 83690; 85025; Q0162

== ENCOUNTER 2019-08-23 12:57 | Emergency (ER) | payer SELFPAY ==
[2019-08-23 13:16] VITALS: BP 125/70
--- NOTE | 2019-08-23 13:23 | Emergency Department Report ---
ED General Adult HPI - General Chief complaint: Extremity Injury, Upper Stated complaint: RT KNUCKLE PAIN Time Seen by Provider: 08/23/19 13:14 Source: patient Mode of arrival: Ambulatory Limitations: No Limitations - History of Present Illness Severity scale (0 -10): 10 - Related Data Previous Rx's Medication Instructions Recorded Last Taken Type Oxycodone HCl/Acetaminophen 1 each PO Q6HR PRN #18 tablet 10/08/16 Unknown Rx [Percocet 7.5/325 mg] Ciprofloxacin HCl [Ciprofloxacin 500 mg PO Q12HR #20 tab 10/16/16 Unknown Rx TAB] HYDROcodone/APAP 5-325 [[place] 1 each PO Q6HR PRN #6 tablet 10/16/16 Unknown Rx 5/325] metroNIDAZOLE [Flagyl] 500 mg PO Q8HR #30 tablet 10/16/16 Unknown Rx Cyclobenzaprine [Flexeril] 10 mg PO TID PRN #12 tablet 05/08/19 Unknown Rx Docusate Sodium [Colace] 100 mg PO BID PRN #20 capsule 08/19/19 Unknown Rx Famotidine [Pepcid] 40 mg PO QHS #30 tablet 08/19/19 Unknown Rx Ondansetron [Zofran Odt] 4 mg PO Q8HR PRN #12 tab.rapdis 08/19/19 Unknown Rx Polyethylene Glycol 3350 [Miralax] 7 gm PO DAILY PRN #1 powder 08/19/19 Unknown Rx Allergies Allergy/AdvReac Type Severity Reaction Status Date / Time acetaminophen [From Percocet] Allergy Angioedema Verified 05/08/19 22:50 ketorolac tromethamine Allergy Anaphylaxis Verified 10/08/16 00:17 [From Toradol] theophylline Allergy Anaphylaxis Verified 10/08/16 00:17 tramadol Allergy Anaphylaxis Verified 10/08/16 02:43 ED Review of Systems ROS: Stated complaint: RT KNUCKLE PAIN Other details as noted in HPI ED Past Medical Hx - Past Medical History Previous Medical History?: Yes Hx Asthma: Yes Additional medical history: OVARIAN CYST, Uterine fibroids - Surgical History Past Surgical History?: Yes Hx Appendectomy: Yes Hx Breast Surgery: Yes (breast reduction) Additional Surgical History: Hysterectomy. tubal ligation - Social History Smoking Status: Current Every Day Smoker Substance Use Type: Alcohol - Medications Home Medications: Home Medications Medication Instructions Recorded Confirmed Last Taken Type Oxycodone HCl/Acetaminophen 1 each PO Q6HR PRN #18 tablet 10/08/16 Unknown Rx [Percocet 7.5/325 mg] Ciprofloxacin HCl [Ciprofloxacin 500 mg PO Q12HR #20 tab 10/16/16 Unknown Rx TAB] HYDROcodone/APAP 5-325 [[place] 1 each PO Q6HR PRN #6 tablet 10/16/16 Unknown Rx 5/325] metroNIDAZOLE [Flagyl] 500 mg PO Q8HR #30 tablet 10/16/16 Unknown Rx Cyclobenzaprine [Flexeril] 10 mg PO TID PRN #12 tablet 05/08/19 Unknown Rx Docusate Sodium [Colace] 100 mg PO BID PRN #20 capsule 08/19/19 Unknown Rx Famotidine [Pepcid] 40 mg PO QHS #30 tablet 08/19/19 Unknown Rx Ondansetron [Zofran Odt] 4 mg PO Q8HR PRN #12 tab.rapdis 08/19/19 Unknown Rx Polyethylene Glycol 3350 [Miralax] 7 gm PO DAILY PRN #1 powder 08/19/19 Unknown Rx ED Physical Exam - General Limitations: No Limitations ED Course Vital Signs 08/23/19 08/23/19 13:13 13:16 Temperature 99.0 F Pulse Rate 100 H Respiratory 15 Rate Blood Pressure 125/70 O2 Sat by Pulse 100 Oximetry ED Medical Decision Making - Radiology Data Radiology results: report reviewed RIGHT HAND 3 VIEWS INDICATION / CLINICAL INFORMATION: 3rd MCP pain and swelling. COMPARISON: 07/27/2019 FINDINGS: Mild contraction of the little finger, less so than on the prior examination dated 07/27/2019. No other significant skeletal abnormality. Critical care attestation.: If time is entered above; I have spent that time in minutes in the direct care of this critically ill patient, excluding procedure time. ED Disposition Condition: Stable
--- NOTE | 2019-08-23 13:58 | XRay Report ---
RIGHT HAND 3 VIEWS INDICATION / CLINICAL INFORMATION: 3rd MCP pain and swelling. COMPARISON: 07/27/2019 FINDINGS: Mild contraction of the little finger, less so than on the prior examination dated 07/27/2019. No othe r significant skeletal abnormality. Signer Name: Pedro Akhtar MD FACRavi Signed: 08/23/2019 1:53 PM Workstation Name: [id number]
--- NOTE | 2019-08-23 14:39 | Emergency Department Report ---
Chief Complaint: Extremity Injury, Upper Stated Complaint: RT KNUCKLE PAIN Time Seen by Provider: 08/23/19 13:14 - Exam Vital Signs: Vital Signs 08/23/19 08/23/19 13:13 13:16 Temperature 99.0 F Pulse Rate 100 H Respiratory 15 Rate Blood Pressure 125/70 O2 Sat by Pulse 100 Oximetry MSE screening note: Focused history and physical exam performed. Due to findings the following was ordered: ED Medical Decision Making - Radiology Data Radiology results: report reviewed RIGHT HAND 3 VIEWS INDICATION / CLINICAL INFORMATION: 3rd MCP pain and swelling. COMPARISON: 07/27/2019 FINDINGS: Mild contraction of the little finger, less so than on the prior examination dated 07/27/2019. No other significant skeletal abnormality. ED Disposition for MSE Clinical Impression: Hand pain, right Disposition: Z-07 MED SCREENING EXAM-LEFT Is pt being admited?: No Condition: Stable Instructions: Arthralgia (ED) Referrals: COLEMAN REYNOSO MD [Staff Physician] - 3-5 Days Forms: Work/School Release Form(ED)
--- NOTE | 2019-08-23 14:56 | Emergency Department Report ---
ED General Adult HPI - General Chief complaint: Extremity Injury, Upper Stated complaint: RT KNUCKLE PAIN Time Seen by Provider: 08/23/19 13:14 Source: patient Mode of arrival: Ambulatory Limitations: No Limitations - History of Present Illness Initial comments: 33-year-old -[place] Citizen female patient presents with complaints of sudden worsening of right MCP joint pain x 2 days. Patient was seen here on 07/27/2019 with complaints of pain in this joint after a work-related injury. Patient states she is currently following with Dr. Alejo, orthopedics, and is scheduled for an MRI on Saturday of this week. She rates her current pain as a 9/10 in severity and denies any new injuries. She also denies any loss of sensation, but states she has decreased flexion of the hand due to pain. Severity scale (0 -10): 10 - Related Data Previous Rx's Medication Instructions Recorded Last Taken Type Oxycodone HCl/Acetaminophen 1 each PO Q6HR PRN #18 tablet 10/08/16 Unknown Rx [Percocet 7.5/325 mg] Ciprofloxacin HCl [Ciprofloxacin 500 mg PO Q12HR #20 tab 10/16/16 Unknown Rx TAB] HYDROcodone/APAP 5-325 [[place] 1 each PO Q6HR PRN #6 tablet 10/16/16 Unknown Rx 5/325] metroNIDAZOLE [Flagyl] 500 mg PO Q8HR #30 tablet 10/16/16 Unknown Rx Cyclobenzaprine [Flexeril] 10 mg PO TID PRN #12 tablet 05/08/19 Unknown Rx Docusate Sodium [Colace] 100 mg PO BID PRN #20 capsule 08/19/19 Unknown Rx Famotidine [Pepcid] 40 mg PO QHS #30 tablet 08/19/19 Unknown Rx Ondansetron [Zofran Odt] 4 mg PO Q8HR PRN #12 tab.rapdis 08/19/19 Unknown Rx Polyethylene Glycol 3350 [Miralax] 7 gm PO DAILY PRN #1 powder 08/19/19 Unknown Rx Acetaminophen/Codeine [Tylenol 1 tab PO Q8H PRN #6 tab 08/23/19 Unknown Rx /Codeine # 3 tab] Diclofenac Sodium 50 mg PO TID PRN #21 tablet. 08/23/19 Unknown Rx Allergies Allergy/AdvReac Type Severity Reaction Status Date / Time acetaminophen [From Percocet] Allergy Angioedema Verified 05/08/19 22:50 ketorolac tromethamine Allergy Anaphylaxis Verified 10/08/16 00:17 [From Toradol] theophylline Allergy Anaphylaxis Verified 10/08/16 00:17 tramadol Allergy Anaphylaxis Verified 10/08/16 02:43 ED Review of Systems ROS: Stated complaint: RT KNUCKLE PAIN Other details as noted in HPI Constitutional: denies: chills, fever Respiratory: denies: cough, shortness of breath Gastrointestinal: denies: nausea, vomiting Musculoskeletal: joint swelling, arthralgia Skin: denies: rash, lesions, change in color ED Past Medical Hx - Past Medical History Previous Medical History?: Yes Hx Asthma: Yes Additional medical history: OVARIAN CYST, Uterine fibroids - Surgical History Past Surgical History?: Yes Hx Appendectomy: Yes Hx Breast Surgery: Yes (breast reduction) Additional Surgical History: Hysterectomy. tubal ligation - Social History Smoking Status: Current Every Day Smoker Substance Use Type: Alcohol - Medications Home Medications: Home Medications Medication Instructions Recorded Confirmed Last Taken Type Oxycodone HCl/Acetaminophen 1 each PO Q6HR PRN #18 tablet 10/08/16 Unknown Rx [Percocet 7.5/325 mg] Ciprofloxacin HCl [Ciprofloxacin 500 mg PO Q12HR #20 tab 10/16/16 Unknown Rx TAB] HYDROcodone/APAP 5-325 [[place] 1 each PO Q6HR PRN #6 tablet 10/16/16 Unknown Rx 5/325] metroNIDAZOLE [Flagyl] 500 mg PO Q8HR #30 tablet 10/16/16 Unknown Rx Cyclobenzaprine [Flexeril] 10 mg PO TID PRN #12 tablet 05/08/19 Unknown Rx Docusate Sodium [Colace] 100 mg PO BID PRN #20 capsule 08/19/19 Unknown Rx Famotidine [Pepcid] 40 mg PO QHS #30 tablet 08/19/19 Unknown Rx Ondansetron [Zofran Odt] 4 mg PO Q8HR PRN #12 tab.rapdis 08/19/19 Unknown Rx Polyethylene Glycol 3350 [Miralax] 7 gm PO DAILY PRN #1 powder 08/19/19 Unknown Rx Acetaminophen/Codeine [Tylenol 1 tab PO Q8H PRN #6 tab 08/23/19 Unknown Rx /Codeine # 3 tab] Diclofenac Sodium 50 mg PO TID PRN #21 tablet. 08/23/19 Unknown Rx ED Physical Exam - General Limitations: No Limitations General appearance: alert, in no apparent distress - Head Head exam: Present: atraumatic, normocephalic - Eye Eye exam: Absent: scleral icterus - Neck Neck exam: Present: full ROM - Respiratory Respiratory exam: Absent: respiratory distress - Cardiovascular Cardiovascular Exam: Present: regular rate, normal rhythm - Extremities Exam Extremities exam: Present: other (swelling and tenderness noted to the dorsal aspet oft he right middle finger MCP joint. No erythema, decreased sensation, or decreased ROM noted. Noral capillary refill is also noted of the right hand ) - Neurological Exam Neurological exam: Present: alert, oriented X3. Absent: motor sensory deficit - Psychiatric Psychiatric exam: Present: normal affect, normal mood - Skin Skin exam: Present: warm, dry, intact, normal color. Absent: rash, cyanosis, erythema, ecchymosis ED Course Vital Signs 08/23/19 08/23/19 13:13 13:16 Temperature 99.0 F Pulse Rate 100 H Respiratory 15 Rate Blood Pressure 125/70 O2 Sat by Pulse 100 Oximetry ED Medical Decision Making - Radiology Data Radiology results: report reviewed RIGHT HAND 3 VIEWS INDICATION / CLINICAL INFORMATION: 3rd MCP pain and swelling. COMPARISON: 07/27/2019 FINDINGS: Mild contraction of the little finger, less so than on the prior examination dated 07/27/2019. No other significant skeletal abnormality. - Medical Decision Making Patient here with complaints of sudden worsening of her right hand pain after a work-related injury a month ago. Patient was seen here for the same in June. She is currently following with orthopedics and has an MRI scheduled for Saturday. X-ray of the hand is negative for any acute changes. Patient's vitals are stable. She is stable for discharge home. Recommend follow-up with her employment service specialist. Strict return precautions were discussed in detail with patient who verbalizes understanding. Critical care attestation.: If time is entered above; I have spent that time in minutes in the direct care of this critically ill patient, excluding procedure time. ED Disposition Clinical Impression: Hand pain, right, Finger pain, right Disposition: - TO HOME OR SELFCARE Is pt being admited?: No Condition: Stable Instructions: Arthralgia (ED) Additional Instructions: Please follow-up with your employment service specialist in 2 days for further treatment and evaluation Prescriptions: Diclofenac Sodium 50 mg PO TID PRN #21 tablet. PRN Reason: pain Acetaminophen/Codeine [Tylenol /Codeine # 3 tab] 1 tab PO Q8H PRN #6 tab PRN Reason: Pain , Severe (7-10) Referrals: PRIMARY CARE, [Primary Care Provider] - 3-5 Days Forms: Work/School Release Form(ED)
== END 2019-08-23 15:21 | disposition home or self-care (01) ==
LOC: ED 12:57
DX: M79.644 Pain in right finger(s) (principal); J45.909 Unspecified asthma, uncomplicated; F17.200 Nicotine dependence, unspecified, uncomplicated; Z90.710 Acquired absence of both cervix and uterus; Z90.49 Acquired absence of other specified parts of digestive tract; Z88.6 Allergy status to analgesic agent

== ENCOUNTER 2020-01-07 11:02 | Observation (INO) | payer SELFPAY ==
[2020-01-07] MEDS ORDERED: ALBUTEROL 2.5 MG/3 ML NEBU IH ONE (11:05)
[2020-01-07] MEDS ORDERED: dexAMETHasone 20 MG/5 ML VIAL IM ONE (11:05)
[2020-01-07] MEDS ORDERED: IPRATROPIUM 0.02% NEBU 2.5 ML IH ONE (11:05)
[2020-01-07] MEDS ORDERED: MAGNESIUM SULFATE 2 GM/50 ML BAG IV ONE (12:16)
--- NOTE | 2020-01-07 13:00 | Emergency Department Report ---
ED Asthma HPI - General Chief Complaint: Adult Asthma Stated Complaint: ASTHMA Time Seen by Provider: 01/07/20 11:05 Source: patient Mode of arrival: Ambulatory Limitations: No Limitations - History of Present Illness Initial Comments: This is a 34-year-old female nontoxic, well nourished in appearance, with some SOB distress presents to the ED with c/o of acute on chronic asthma exacerbation. Patient stated she is out of her albuterol inhaler 1 month. Patient denies any cough. Patient denies any sick contact. Patient denies any recent travels, long car, recent hospital stays. Patient denies any calf pain or calf tenderness. Patient denies any chest pain, fever, chills, nausea, vomiting, hemoptysis, numbness, tingling, headache or stiff neck. Past medical history includes asthma. MD Complaint: "asthma attack", shortness of breath, wheezing -: days(s) Asthma History: childhood onset Severity: moderate Associated Symptoms: none - Related Data Current Asthma Therapy: none Previous Rx's Medication Instructions Recorded Last Taken Type Oxycodone HCl/Acetaminophen 1 each PO Q6HR PRN #18 tablet 10/08/16 Unknown Rx [Percocet 7.5/325 mg] Ciprofloxacin HCl [Ciprofloxacin 500 mg PO Q12HR #20 tab 10/16/16 Unknown Rx TAB] HYDROcodone/APAP 5-325 [[place] 1 each PO Q6HR PRN #6 tablet 10/16/16 Unknown Rx 5/325] metroNIDAZOLE [Flagyl] 500 mg PO Q8HR #30 tablet 10/16/16 Unknown Rx Cyclobenzaprine [Flexeril] 10 mg PO TID PRN #12 tablet 05/08/19 Unknown Rx Docusate Sodium [Colace] 100 mg PO BID PRN #20 capsule 08/19/19 Unknown Rx Famotidine [Pepcid] 40 mg PO QHS #30 tablet 08/19/19 Unknown Rx Ondansetron [Zofran Odt] 4 mg PO Q8HR PRN #12 tab.rapdis 08/19/19 Unknown Rx Polyethylene Glycol 3350 [Miralax] 7 gm PO DAILY PRN #1 powder 08/19/19 Unknown Rx Acetaminophen/Codeine [Tylenol 1 tab PO Q8H PRN #6 tab 08/23/19 Unknown Rx /Codeine # 3 tab] Diclofenac Sodium 50 mg PO TID PRN #21 tablet. 08/23/19 Unknown Rx Allergies Allergy/AdvReac Type Severity Reaction Status Date / Time acetaminophen [From Percocet] Allergy Angioedema Verified 05/08/19 22:50 ketorolac tromethamine Allergy Anaphylaxis Verified 10/08/16 00:17 [From Toradol] theophylline Allergy Anaphylaxis Verified 10/08/16 00:17 tramadol Allergy Anaphylaxis Verified 10/08/16 02:43 ED Review of Systems ROS: Stated complaint: ASTHMA Other details as noted in HPI Constitutional: denies: chills, fever Eyes: denies: eye pain, eye discharge, vision change ENT: denies: ear pain, throat pain Respiratory: shortness of breath, wheezing. denies: cough Cardiovascular: denies: chest pain, palpitations Endocrine: no symptoms reported Gastrointestinal: denies: abdominal pain, nausea, diarrhea Genitourinary: denies: urgency, dysuria, discharge Musculoskeletal: denies: back pain, joint swelling, arthralgia Skin: denies: rash, lesions Neurological: denies: headache, weakness, paresthesias Psychiatric: denies: anxiety, depression Hematological/Lymphatic: denies: easy bleeding, easy bruising ED Past Medical Hx - Past Medical History Previous Medical History?: Yes Hx Asthma: Yes Additional medical history: OVARIAN CYST, Uterine fibroids - Surgical History Past Surgical History?: Yes Hx Appendectomy: Yes Hx Breast Surgery: Yes (breast reduction) Additional Surgical History: Hysterectomy. tubal ligation - Social History Smoking Status: Current Every Day Smoker Substance Use Type: Alcohol - Medications Home Medications: Home Medications Medication Instructions Recorded Confirmed Last Taken Type Oxycodone HCl/Acetaminophen 1 each PO Q6HR PRN #18 tablet 10/08/16 Unknown Rx [Percocet 7.5/325 mg] Ciprofloxacin HCl [Ciprofloxacin 500 mg PO Q12HR #20 tab 10/16/16 Unknown Rx TAB] HYDROcodone/APAP 5-325 [[place] 1 each PO Q6HR PRN #6 tablet 10/16/16 Unknown Rx 5/325] metroNIDAZOLE [Flagyl] 500 mg PO Q8HR #30 tablet 10/16/16 Unknown Rx Cyclobenzaprine [Flexeril] 10 mg PO TID PRN #12 tablet 05/08/19 Unknown Rx Docusate Sodium [Colace] 100 mg PO BID PRN #20 capsule 08/19/19 Unknown Rx Famotidine [Pepcid] 40 mg PO QHS #30 tablet 08/19/19 Unknown Rx Ondansetron [Zofran Odt] 4 mg PO Q8HR PRN #12 tab.rapdis 08/19/19 Unknown Rx Polyethylene Glycol 3350 [Miralax] 7 gm PO DAILY PRN #1 powder 08/19/19 Unknown Rx Acetaminophen/Codeine [Tylenol 1 tab PO Q8H PRN #6 tab 08/23/19 Unknown Rx /Codeine # 3 tab] Diclofenac Sodium 50 mg PO TID PRN #21 tablet. 08/23/19 Unknown Rx ED Physical Exam - General Limitations: No Limitations General appearance: alert, in no apparent distress - Head Head exam: Present: atraumatic, normocephalic - Eye Eye exam: Present: normal appearance - Neck Neck exam: Present: normal inspection, full ROM - Respiratory Respiratory exam: Present: wheezes (diffuse). Absent: respiratory distress, rales, rhonchi, stridor, chest wall tenderness, accessory muscle use, decreased breath sounds, prolonged expiratory - Cardiovascular Cardiovascular Exam: Present: regular rate, normal rhythm, normal heart sounds. Absent: irregular rhythm, systolic murmur, diastolic murmur, rubs, gallop - Extremities Exam Extremities exam: Present: full ROM - Back Exam Back exam: Present: full ROM - Neurological Exam Neurological exam: Present: alert, oriented X3 - Psychiatric Psychiatric exam: Present: normal affect, normal mood - Skin Skin exam: Present: warm, dry, intact, normal color. Absent: rash ED Course Vital Signs 01/07/20 11:05 Temperature 99.1 F Pulse Rate 99 H Respiratory 24 Rate Blood Pressure 159/135 [Right] O2 Sat by Pulse 100 Oximetry - Reevaluation(s) Reevaluation #1: 01/07/20 12:58 Patient is speaking in full sentences with some SOB noted on exam. - Consultations Consultation #1: 01/07/20 13:[address] Acevedo (hospitralist) and accepts patient to services. ED Medical Decision Making - Lab Data Result diagrams: 01/07/20 12:55 01/07/20 12:55 Lab Results 01/07/20 01/07/20 01/07/20 Range/Units 12:55 12:55 12:55 WBC 7.3 (4.5-11.0) K/mm3 RBC 4.30 (3.65-5.03) M/mm3 Hgb 12.6 (10.1-14.3) gm/dl Hct 38.2 (30.3-42.9) % MCV 89 (79-97) fl MCH 29 (28-32) pg MCHC 33 (30-34) % RDW 14.2 (13.2-15.2) % Plt Count 213 (140-440) K/mm3 Lymph % (Auto) 15.5 (13.4-35.0) % [place] % (Auto) 3.8 (0.0-7.3) % Eos % (Auto) 3.5 (0.0-4.3) % Baso % (Auto) 0.5 (0.0-1.8) % Lymph # (Auto) 1.1 L (1.2-5.4) K/mm3 [place] # (Auto) 0.3 (0.0-0.8) K/mm3 Eos # (Auto) 0.3 (0.0-0.4) K/mm3 Baso # (Auto) 0.0 (0.0-0.1) K/mm3 Seg Neutrophils % 76.7 H (40.0-70.0) % Seg Neutrophils # 5.6 (1.8-7.7) K/mm3 Sodium 138 (137-145) mmol/L Potassium 3.3 L (3.6-5.0) mmol/L Chloride 101.3 (98-107) mmol/L Carbon Dioxide 21 L (22-30) mmol/L Anion Gap 19 mmol/L BUN 18 H (7-17) mg/dL Creatinine 0.4 L (0.6-1.2) mg/dL Estimated GFR > 60 ml/min BUN/Creatinine Ratio 45 % Glucose 112 H (65-100) mg/dL Calcium 8.8 (8.4-10.2) mg/dL HCG, Qual Negative (Negative) - Medical Decision Making This is a 34-year-old female that presents with asthma exacerbation. Patient is stable and with improvement by me. Labs obtained. Chest x-ray obtained. Patient is notified of the results with no questions noted by the patient. Despite patient receiving breathing treatment, Decadron IM and magnesium 2 g patient is still in shortness of breath and still has wheezing upon auscultation. Patient stated she feels a little better but exam shows that she is still in distress. Patient will be admitted with hospitalist for further evaluation and treatment. At time of admission, the patient does not seem toxic or ill in appearance. No acute signs of distress noted. Patient agrees to admission treatment plan of care. No further questions noted by the patient. Critical care attestation.: If time is entered above; I have spent that time in minutes in the direct care of this critically ill patient, excluding procedure time. ED Disposition Clinical Impression: Hypokalemia Asthma exacerbation Qualifiers: Asthma severity: severe Asthma persistence: persistent Qualified Code(s): J45.51 - Severe persistent asthma with (acute) exacerbation Disposition: 09 OP ADMIT IP TO THIS HOSP Is pt being admited?: Yes Condition: Stable
[2020-01-07 13:05] LABS: Basophils % (Auto) 0.5 % (0.0-1.8); Eosinophils # (Auto) 0.3 K/mm3 (0.0-0.4); Eosinophils % (Auto) 3.5 % (0.0-4.3); Hematocrit 38.2 % (30.3-42.9); Hemoglobin 12.6 gm/dl (10.1-14.3); Lymphocytes # (Auto) 1.1 K/mm3 (1.2-5.4); Lymphocytes % (Auto) 15.5 % (13.4-35.0); Mean Corpuscular HGB Conc 33 % (30-34); Mean Corpuscular Volume 89 fl (79-97); Monocytes # (Auto) 0.3 K/mm3 (0.0-0.8); Monocytes % (Auto) 3.8 % (0.0-7.3); Platelet Count 213 K/mm3 (140-440); Red Cell Distribution Width 14.2 % (13.2-15.2)
[2020-01-07 13:25] LABS: BUN/Creatinine Ratio 45; Blood Urea Nitrogen 18 mg/dL (7-17); Calcium 8.8 mg/dL (8.4-10.2); Hemolysis Index 28
[2020-01-07] MEDS ORDERED: POTASSIUM CHLORIDE ER 20 MEQ TAB PO ONE ×3 (13:26→15:42)
[2020-01-07] MEDS ORDERED: ACETAMINOPHEN 325 MG TAB PO PRN (13:28)
[2020-01-07] MEDS ORDERED: ONDANSETRON 4 MG/2 ML INJ IV PRN (13:28)
--- NOTE | 2020-01-07 13:46 | History and Physical Report ---
History of Present Illness Date of examination: 01/07/20 Chief complaint: worsening shortness of breath since yesterday History of present illness: 34 yr old [place] female with hx of asthma on albuterol PRN, presents with c/o worsening sob since yesterday, associated with dry cough. Feels hot and cold but denbies fever /chills.Her last asthma attack was 5 years ago. treatment in the ED with multiple neb treatments and steroids did not significantly improive her astrhma and she is being admitted for further management Past History Past Medical History: other (asthma) Past Surgical History: appendectomy, hysterectomy, Other (rotator cuff and hand tendon repair) Social history: smoking. denies: alcohol abuse Family history: cancer (breast cancer in aunts), hypertension (mother), stroke (grand mother) Medications and Allergies Allergies Allergy/AdvReac Type Severity Reaction Status Date / Time acetaminophen [From Percocet] Allergy Angioedema Verified 05/08/19 22:50 ketorolac tromethamine Allergy Anaphylaxis Verified 10/08/16 00:17 [From Toradol] theophylline Allergy Anaphylaxis Verified 10/08/16 00:17 tramadol Allergy Anaphylaxis Verified 10/08/16 02:43 Home Medications Medication Instructions Recorded Confirmed Last Taken Type Oxycodone HCl/Acetaminophen 1 each PO Q6HR PRN #18 tablet 10/08/16 Unknown Rx [Percocet 7.5/325 mg] Ciprofloxacin HCl [Ciprofloxacin 500 mg PO Q12HR #20 tab 10/16/16 Unknown Rx TAB] HYDROcodone/APAP 5-325 [[place] 1 each PO Q6HR PRN #6 tablet 10/16/16 Unknown Rx 5/325] metroNIDAZOLE [Flagyl] 500 mg PO Q8HR #30 tablet 10/16/16 Unknown Rx Cyclobenzaprine [Flexeril] 10 mg PO TID PRN #12 tablet 05/08/19 Unknown Rx Docusate Sodium [Colace] 100 mg PO BID PRN #20 capsule 08/19/19 Unknown Rx Famotidine [Pepcid] 40 mg PO QHS #30 tablet 08/19/19 Unknown Rx Ondansetron [Zofran Odt] 4 mg PO Q8HR PRN #12 tab.rapdis 08/19/19 Unknown Rx Polyethylene Glycol 3350 [Miralax] 7 gm PO DAILY PRN #1 powder 08/19/19 Unknown Rx Acetaminophen/Codeine [Tylenol 1 tab PO Q8H PRN #6 tab 08/23/19 Unknown Rx /Codeine # 3 tab] Diclofenac Sodium 50 mg PO TID PRN #21 tablet. 08/23/19 Unknown Rx Active Meds: Active Medications Acetaminophen (Tylenol) 650 mg PO Q4H PRN PRN Reason: Pain MILD(1-3)/Fever >100.5/OLIVARES Albuterol/Ipratropium (Duoneb *Not For Prn Use*) 1 ampul IH QIDRT ANEL Arformoterol Tartrate (Brovana Nebu) 15 mcg IH Q12HRT ANEL Budesonide (Pulmicort) 0.5 mg IH Q12H ANEL Heparin Sodium (Porcine) (Heparin) 5,000 unit SUB-Q Q8HR ANEL Sodium Chloride (Nacl 0.9% 1000 Ml) 1,000 mls @ 75 mls/hr IV DIRECT ANEL Methylprednisolone Sodium Succinate (Solu-Medrol) 40 mg IV Q8H ANEL Ondansetron HCl (Zofran) 4 mg IV Q8H PRN PRN Reason: Nausea And Vomiting Sodium Chloride (Sodium Chloride Flush Syringe 10 Ml) 10 ml IV BID ANEL Sodium Chloride (Sodium Chloride Flush Syringe 10 Ml) 10 ml IV PRN PRN PRN Reason: LINE FLUSH Review of Systems Constitutional: no weight loss, no weight gain, no fever, no chills Ears, nose, mouth and throat: no ear pain, no dysphagia, no hoarseness, no sore throat Breasts: no deferred Cardiovascular: no chest pain, no orthopnea, no palpitations, no high blood pressure Respiratory: cough, wheezing, no hemoptysis Gastrointestinal: no abdominal pain, no nausea, no vomiting Genitourinary Female: no dysuria Rectal: no pain Musculoskeletal: no low back pain Integumentary: no rash Neurological: no head injury, no seizures, no syncope Exam - Constitutional Vitals: Temp Pulse Resp BP Pulse Ox 99.1 F 99 H 24 159/135 100 01/07/20 11:05 01/07/20 11:05 01/07/20 11:05 01/07/20 11:05 01/07/20 11:05 General appearance: Present: no acute distress - EENT Eyes: Present: PERRL, EOM intact ENT: hearing intact, clear oral mucosa - Neck Neck: Present: supple, normal ROM. Absent: masses or JVD - Respiratory Respiratory effort: normal Respiratory: bilateral: wheezing (diffuse mayra. exp. wheezing) - Cardiovascular Rhythm: other (tachycardia) Heart Sounds: Present: S1 & S2 - Extremities Extremities: No edema - Abdominal General gastrointestinal: Present: soft, non-tender. Absent: hepatomegaly, splenomegaly - Rectal Rectal Exam: deferred - Integumentary Integumentary: Present: clear - Musculoskeletal Musculoskeletal: strength equal bilaterally - Psychiatric Psychiatric: appropriate mood/affect - Neurologic Neurologic: CNII-XII intact, no focal deficits Results - Labs CBC & Chem 7: 01/07/20 12:55 01/07/20 12:55 Labs: Abnormal lab results 01/07/20 01/07/20 Range/Units 12:55 12:55 Lymph # (Auto) 1.1 L (1.2-5.4) K/mm3 Seg Neutrophils % 76.7 H (40.0-70.0) % Potassium 3.3 L (3.6-5.0) mmol/L Carbon Dioxide 21 L (22-30) mmol/L BUN 18 H (7-17) mg/dL Creatinine 0.4 L (0.6-1.2) mg/dL Glucose 112 H (65-100) mg/dL Assessment and Plan - Patient Problems (1) Asthma exacerbation Status: Acute Qualifiers: Asthma severity: severe Plan to address problem: admit to floor on observation aggressive neb treatments with duoneb, arformoterol and budesonide IV steroids IV fluids CXR results pending (2) Hypokalemia Status: Acute Plan to address problem: mild potassium supplemented monitor electrolytes
--- NOTE | 2020-01-07 14:01 | XRay Report ---
CHEST 1 VIEW 01/07/2020 1:36 PM INDICATION / CLINICAL INFORMATION: sob/wheezing. COMPARISON: None available. FINDINGS: SUPPORT DEVICES: None. HEART / MEDIASTINUM: No significant abnormality. LUNGS / PLEURA: No significant pulmonary or pleural abnormality. No pneumothorax. ADDITIONAL FINDINGS: No significant additional findings. IMPRESSION: 1. No acute abnormality of the chest. Signer Name: Pedro Rojas MD Signed: 01/07/2020 1:56 PM Workstation Name: [id number]
[2020-01-07] MEDS: methylPREDNISolone Sod Succinate 40 MG/1 ML INJ IV SCH ×2 (14:43→21:04)
[2020-01-07] MEDS: BUDESONIDE 0.5 MG/2 ML NEBU IH SCH ×3 (14:43→20:18)
[2020-01-07] MEDS: HEPARIN 5,000 UNIT/1 ML VIAL SUB-Q SCH ×2 (14:43→21:05)
[2020-01-07] MEDS ORDERED: methylPREDNISolone Sod Succinate 40 MG/1 ML INJ ONE (15:42)
[2020-01-07] MEDS: IPRATROPIUM/ALBUTEROL SULFATE 3 ML AMPUL.NEB IH SCH ×3 (20:09→20:11)
[2020-01-07] MEDS: ARFORMOTEROL 15 MCG/2 ML NEBU IH SCH (20:18)
[2020-01-07] MEDS: SODIUM CHLORIDE 0.9% 1000 ML 1,000 ML IV SCH (20:25)
[2020-01-07] MEDS ORDERED: IBUPROFEN 800 MG TAB PO PRN (23:49)
[2020-01-08] MEDS ORDERED: ALBUTEROL 2.5 MG/3 ML NEBU IH PRN (02:43)
[2020-01-08] MEDS ORDERED: MORPHINE 2 MG/1 ML INJ IV ONE (03:22)
[2020-01-08] MEDS: methylPREDNISolone Sod Succinate 40 MG/1 ML INJ IV SCH ×3 (07:12→22:52)
[2020-01-08] MEDS: HEPARIN 5,000 UNIT/1 ML VIAL SUB-Q SCH ×3 (07:12→21:01)
[2020-01-08] MEDS: IPRATROPIUM/ALBUTEROL SULFATE 3 ML AMPUL.NEB IH SCH ×3 (07:35→19:39)
[2020-01-08] MEDS: BUDESONIDE 0.5 MG/2 ML NEBU IH SCH ×3 (07:35→19:38)
[2020-01-08] MEDS: ARFORMOTEROL 15 MCG/2 ML NEBU IH SCH ×2 (07:35→20:03)
--- NOTE | 2020-01-08 08:07 | Progress Note ---
Assessment and Plan - Patient Problems (1) Asthma exacerbation Current Visit: Yes Status: Acute Qualifiers: Asthma severity: severe Asthma persistence: persistent Qualified Code(s): J45.51 - Severe persistent asthma with (acute) exacerbation Plan to address problem: Appears to be asthma exacerbation. Most likely secondary to underlying bronchitis. Will treat empirically with antibiotics. Steroids beta agonist as well. Oxygen nebulizers as needed. Patient denies any coronavirus contacts however would like to obtain a test while present. Which I think is reasonable. Most likely will be able to turn around 24 to 48 hours. (2) Hypokalemia Current Visit: Yes Status: Acute Plan to address problem: Correct p.o. (3) Paresthesia Current Visit: Yes Status: Acute Plan to address problem: Generalized paresthesia patient feels hot on the inside. That is all she can t ell no pain. States morphine is the only thing that works. Does not appear to be pain at all. Clearly does not have any chest pain. Will give Ativan as she does have some anxiety. Subjective Date of service: 01/08/20 Principal diagnosis: Asthma exacerbation Interval history: 34-year-old presents with typical asthma exacerbation with wheezing shortness of breath during the 24-hour.Pt still has problems breathing She said she is burning from the inside. morphine was the only thing that worked. Patient is wheezing and she is tight but no acute distress. Objective - Constitutional Vitals: Vital Signs - 12hr 01/07/20 01/07/20 01/07/20 20:19 20:21 23:32 Temperature 98.5 F Pulse Rate 78 Pulse Rate [ 96 H Bilateral] Respiratory 22 Rate Respiratory 22 Rate [Bilateral ] Blood Pressure 127/75 O2 Sat by Pulse 98 97 Oximetry 01/08/20 01/08/20 02:54 05:13 Temperature 98.4 F Pulse Rate 79 Pulse Rate [ 93 H Bilateral] Respiratory 24 Rate Respiratory 18 Rate [Bilateral ] Blood Pressure 112/67 O2 Sat by Pulse 100 Oximetry General appearance: Present: no acute distress, well-nourished - EENT Eyes: PERRL, EOM intact ENT: hearing intact, clear oral mucosa Ears: bilateral: normal - Neck Neck: supple, normal ROM - Respiratory Respiratory: bilateral: diminished, wheezing - Breasts Breasts: normal - Cardiovascular Rhythm: regular Heart Sounds: Present: S1 & S2. Absent: gallop, rub Extremities: pulses intact, No edema, normal color, Full ROM - Gastrointestinal General gastrointestinal: Present: soft, non-tender, non-distended, normal bowel sounds - Integumentary Integumentary: clear, warm, dry - Musculoskeletal Musculoskeletal: 1, strength equal bilaterally - Neurologic Neurologic: moves all extremities - Labs CBC & Chem 7: 01/08/20 08:37 01/08/20 08:37 Labs: Abnormal lab results 01/07/20 01/07/20 Range/Units 12:55 12:55 Lymph # (Auto) 1.1 L (1.2-5.4) K/mm3 Seg Neutrophils % 76.7 H (40.0-70.0) % Potassium 3.3 L (3.6-5.0) mmol/L Carbon Dioxide 21 L (22-30) mmol/L BUN 18 H (7-17) mg/dL Creatinine 0.4 L (0.6-1.2) mg/dL Glucose 112 H (65-100) mg/dL - Imaging and cardiology Chest x-ray: image reviewed
[2020-01-08 09:15] LABS: Basophils % (Auto) 0.1 % (0.0-1.8); Hematocrit 35.2 % (30.3-42.9); Hemoglobin 11.7 gm/dl (10.1-14.3); Lymphocytes # (Auto) 0.8 K/mm3 (1.2-5.4); Lymphocytes % (Auto) 7.8 % (13.4-35.0); Mean Corpuscular HGB Conc 33 % (30-34); Mean Corpuscular Volume 89 fl (79-97); Monocytes # (Auto) 0.4 K/mm3 (0.0-0.8); Monocytes % (Auto) 4.6 % (0.0-7.3); Platelet Count 206 K/mm3 (140-440); Red Blood Count 3.96 M/mm3 (3.65-5.03); Red Cell Distribution Width 13.7 % (13.2-15.2)
[2020-01-08 09:32] LABS: Blood Urea Nitrogen 14 mg/dL (7-17); Calcium 8.5 mg/dL (8.4-10.2); Hemolysis Index 5
[2020-01-08 09:33] LABS: BUN/Creatinine Ratio 35
[2020-01-08] MEDS: LORazepam 2 MG/ML VIAL IV PRN ×2 (11:33→20:53)
[2020-01-08] MEDS: SODIUM CHLORIDE 0.9% 1000 ML 1,000 ML IV SCH (16:01)
[2020-01-09] MEDS: BUDESONIDE 0.5 MG/2 ML NEBU IH SCH (01:10)
[2020-01-09] MEDS: LORazepam 2 MG/ML VIAL IV PRN (05:08)
[2020-01-09] MEDS: methylPREDNISolone Sod Succinate 40 MG/1 ML INJ IV SCH (05:08)
[2020-01-09] MEDS: HEPARIN 5,000 UNIT/1 ML VIAL SUB-Q SCH (05:08)
[2020-01-09] MEDS: SODIUM CHLORIDE 0.9% 1000 ML 1,000 ML IV SCH (05:21)
[2020-01-09] MEDS: ARFORMOTEROL 15 MCG/2 ML NEBU IH SCH (08:16)
--- NOTE | 2020-01-09 10:47 | Discharge Summary ---
Providers - Providers Date of Admission: 01/07/20 13:28 Date of discharge: 01/09/20 Attending physician: HOLLY GRACIA Primary care physician: CLINICAL RECRUITER Hospitalization Condition: Good Hospital course: 34-year-old presents with acute asthma exacerbation. Patient defervesced well with steroids empiric antibiotics oxygen and nebulizer treatments. Patient be discharged home on beta agonist as well as albuterol nebulizer treatments as needed steroid taper and complete empiric antibiotics for total of 7 days. Patient also be given nicotine patch for tobacco abuse. Disposition: DC-01 TO HOME OR SELFCARE - Discharge Diagnoses (1) Asthma exacerbation Status: Acute Qualifiers: Asthma severity: severe Asthma persistence: persistent Qualified Code(s): J45.51 - Severe persistent asthma with (acute) exacerbation Comment: Resolved beta agonist nebulizers follow-up with pulmonary or primary care physician in 5 to 7 days. (2) Hypokalemia Status: Acute Comment: Resolved (3) Paresthesia Status: Acute Comment: Resolved with Ativan was secondary to anxiety. Core Measure Documentation - Palliative Care Palliative Care/ Comfort Measures: Not Applicable - Core Measures Any of the following diagnoses?: none Exam - Constitutional Vitals: Temp Pulse Resp BP Pulse Ox 98.4 F 70 16 123/63 96 01/09/20 04:51 01/09/20 08:15 01/09/20 08:15 01/09/20 04:51 01/09/20 04:51 General appearance: Present: no acute distress, well-nourished - EENT Eyes: Present: PERRL ENT: hearing intact, clear oral mucosa - Neck Neck: Present: supple, normal ROM - Respiratory Respiratory effort: normal Respiratory: bilateral: CTA - Cardiovascular Heart Sounds: Present: S1 & S2. Absent: rub, click - Extremities Extremities: pulses symmetrical, No edema Peripheral Pulses: within normal limits - Abdominal General gastrointestinal: Present: soft, non-tender, non-distended, normal bowel sounds Female genitourinary: Present: normal - Integumentary Integumentary: Present: clear, warm, dry - Musculoskeletal Musculoskeletal: gait normal, strength equal bilaterally - Psychiatric Psychiatric: appropriate mood/affect, intact judgment & insight - Neurologic Neurologic: CNII-XII intact, moves all extremities Plan Activity: no restrictions Weight Bearing Status: Full Weight Bearing Diet: regular Special Instructions: smoking cessation Durable Medical Equipment Needed Upon Discharge: Nebulizer Follow up with: PRIMARY CARE, [Primary Care Provider] - 7 Days Prescriptions: Arformoterol Nebu [Brovana Nebu] 15 mcg IH Q12HRT #1 ml Ciprofloxacin HCl [Ciprofloxacin TAB] 500 mg PO Q12HR #10 tab Nicotine [Habitrol] 14 mg TD DAILY #20 patch methylPREDNISolone [Medrol 4MG DOSEPAK (21 tabs)] 4 mg PO AC 7 Days #21 tab.ds.pk HYDROcodone/APAP 5-325 [[place] 5-325 mg TAB] 1 each PO Q6HR PRN #20 tablet PRN Reason: Pain ALBUTEROL NEB's [Proventil 0.083% NEBS] 2.5 mg IH Q4HRT PRN #7 nebu PRN Reason: Shortness Of Breath Budesonide [Pulmicort Respules] 0.5 mg IH Q12H #1 nebu
[2020-01-09 13:01] VITALS: BP 138/73
== END 2020-01-09 12:42 | disposition home or self-care (01) ==
LOC: ED 11:02 → 3A 13:28
PROVIDERS: ADMIT Internal Medicine; ATTEND Internal Medicine
DX: J45.901 Unspecified asthma with (acute) exacerbation (principal); Z20.828 Contact with and (suspected) exposure to other viral communicable diseases; E87.6 Hypokalemia; F17.210 Nicotine dependence, cigarettes, uncomplicated; R20.2 Paresthesia of skin; Z90.49 Acquired absence of other specified parts of digestive tract; Z90.710 Acquired absence of both cervix and uterus; Z98.51 Tubal ligation status; Z98.890 Other specified postprocedural states
CPT/HCPCS: 36415; 71045; 80048; 84703; 85025; 85379; 86140; 93005; 94640; 94760; 96361; 96365; 96372; 96375; 96376; 99284; G0378; J1100; J1644; J2060; J2270; J2405; J2920; J3475; J7030; U0003

== ENCOUNTER 2020-06-21 20:00 | Emergency (ER) | payer SELFPAY ==
--- NOTE | 2020-06-21 20:05 | Event Note ---
ED Screening Note Date of service: 06/21/20 Time: 20:04 ED Screening Note: Patient complains of right middle hand/finger pain and swelling Had surgery in the area 6 months ago States pain and swelling started suddenly This initial assessment/diagnostic orders/clinical plan/treatment(s) is/are subject to change based on patients health status, clinical progression and re- assessment by fellow clinical providers in the ED. Further treatment and workup at subsequent clinical providers discretion. Patient/guardian urged not to elope from the ED as their condition may be serious if not clinically assessed and managed. Initial orders include: X-ray
[2020-06-21 20:10] VITALS: BP 131/70
--- NOTE | 2020-06-21 20:45 | XRay Report ---
RIGHT HAND 3 VIEWS 2033 INDICATION: acute middle finger/MC pain and swelling, no injury, history of metacarpal phalangeal umang nt surgery in November COMPARISON: 08/23/2019 FINDINGS: No fractures or dislocations are seen. No significant arthritic changes are noted. No forei gn bodies are seen. No soft tissue gas is noted. No obvious changes are seen. Signer Name: Casey Taylor MD Signed: 06/21/2020 8:41 PM Workstation Name: [id number]
--- NOTE | 2020-06-21 22:24 | Emergency Department Report ---
<GIULIA CURRY - Last Filed: 06/21/20 22:52> ED General Adult HPI - General Chief complaint: Extremity Problem,Nontraumatic Stated complaint: SWOLLEN RIGHT MIDDLE FINGER Time Seen by Provider: 06/21/20 20:04 Source: patient Mode of arrival: Ambulatory Limitations: No Limitations - History of Present Illness Initial comments: Patient 34-year-old female who presents for right middle finger pain and swelling, patient has history of right middle finger trigger repair 2 years ago. States pain and aching started today with mild swelling. Injury was related to hyperextension injury. Pain reported as 5/10. Pain is exacerbated by movement and palpation. Pain is relieved by nothing tried. Patient denies new fall injury or trauma - Related Data Previous Rx's Medication Instructions Recorded Last Taken Type Cyclobenzaprine [Flexeril 10 MG 10 mg PO TID PRN #12 tablet 05/08/19 Unknown Rx TAB] Docusate Sodium [Colace CAP] 100 mg PO BID PRN #20 capsule 08/19/19 Unknown Rx Famotidine [Pepcid] 40 mg PO QHS #30 tablet 08/19/19 Unknown Rx Ondansetron [Zofran ODT TAB] 4 mg PO Q8HR PRN #12 tab.rapdis 08/19/19 Unknown Rx Polyethylene Glycol 3350 [Miralax] 7 gm PO DAILY PRN #1 powder 08/19/19 Unknown Rx Diclofenac Sodium 50 mg PO TID PRN #21 tablet. 08/23/19 Unknown Rx ALBUTEROL NEB's [Proventil 0.083% 2.5 mg IH Q4HRT PRN #7 nebu 01/09/20 Unknown Rx NEBS] Acetaminophen [Acetaminophen TAB] 650 mg PO Q4H PRN tablet 01/09/20 Unknown Rx Arformoterol Nebu [Brovana Nebu] 15 mcg IH Q12HRT #1 ml 01/09/20 Unknown Rx Budesonide [Pulmicort Respules] 0.5 mg IH Q12H #1 nebu 01/09/20 Unknown Rx Ciprofloxacin HCl [Ciprofloxacin 500 mg PO Q12HR #10 tab 01/09/20 Unknown Rx TAB] HYDROcodone/APAP 5-325 [[place] 1 each PO Q6HR PRN #20 tablet 01/09/20 Unknown Rx 5-325 mg TAB] Nicotine [Habitrol] 14 mg TD DAILY #20 patch 01/09/[address] [Voltaren Dr] 75 mg PO TID PRN #30 tablet 06/21/20 Unknown Rx cephALEXin [Keflex] 500 mg PO Q8HR 7 Days #21 cap 06/22/20 Unknown Rx Allergies Allergy/AdvReac Type Severity Reaction Status Date / Time acetaminophen [From Percocet] Allergy Angioedema Verified 06/21/20 20:03 ketorolac tromethamine Allergy Anaphylaxis Verified 06/21/20 20:03 [From Toradol] theophylline Allergy Anaphylaxis Verified 06/21/20 20:03 tramadol Allergy Anaphylaxis Verified 06/21/20 20:03 ED Review of Systems Constitutional: denies: chills, fever Eyes: denies: eye pain, eye discharge, vision change ENT: denies: ear pain, throat pain Respiratory: denies: cough, shortness of breath, wheezing Cardiovascular: denies: chest pain, palpitations Endocrine: no symptoms reported Gastrointestinal: denies: abdominal pain, nausea, diarrhea Genitourinary: denies: urgency, dysuria, discharge Musculoskeletal: denies: back pain, joint swelling, arthralgia Skin: denies: rash, lesions Neurological: as per HPI Psychiatric: denies: anxiety, depression Hematological/Lymphatic: denies: easy bleeding, easy bruising ED Past Medical Hx - Past Medical History Hx Congestive Heart Failure: No Hx Diabetes: No Hx Asthma: Yes Hx COPD: No Hx HIV: No Additional medical history: OVARIAN CYST, Uterine fibroids - Surgical History Hx Appendectomy: Yes Hx Breast Surgery: Yes (breast reduction) Additional Surgical History: Hysterectomy. tubal ligation - Social History Smoking Status: Current Some Day Smoker Substance Use Type: None - Medications Home Medications: Home Medications Medication Instructions Recorded Confirmed Last Taken Type Cyclobenzaprine [Flexeril 10 MG 10 mg PO TID PRN #12 tablet 05/08/19 Unknown Rx TAB] Docusate Sodium [Colace CAP] 100 mg PO BID PRN #20 capsule 08/19/19 Unknown Rx Famotidine [Pepcid] 40 mg PO QHS #30 tablet 08/19/19 Unknown Rx Ondansetron [Zofran ODT TAB] 4 mg PO Q8HR PRN #12 tab.rapdis 08/19/19 Unknown Rx Polyethylene Glycol 3350 [Miralax] 7 gm PO DAILY PRN #1 powder 08/19/19 Unknown Rx Diclofenac Sodium 50 mg PO TID PRN #21 tablet. 08/23/19 Unknown Rx ALBUTEROL NEB's [Proventil 0.083% 2.5 mg IH Q4HRT PRN #7 nebu 01/09/20 Unknown Rx NEBS] Acetaminophen [Acetaminophen TAB] 650 mg PO Q4H PRN tablet 01/09/20 Unknown Rx Arformoterol Nebu [Brovana Nebu] 15 mcg IH Q12HRT #1 ml 01/09/20 Unknown Rx Budesonide [Pulmicort Respules] 0.5 mg IH Q12H #1 nebu 01/09/20 Unknown Rx Ciprofloxacin HCl [Ciprofloxacin 500 mg PO Q12HR #10 tab 01/09/20 Unknown Rx TAB] HYDROcodone/APAP 5-325 [[place] 1 each PO Q6HR PRN #20 tablet 01/09/20 Unknown Rx 5-325 mg TAB] Nicotine [Habitrol] 14 mg TD DAILY #20 patch 01/09/[address] [Nica Mercado] 75 mg PO TID PRN #30 tablet 06/21/20 Unknown Rx cephALEXin [Keflex] 500 mg PO Q8HR 7 Days #21 cap 06/22/20 Unknown Rx ED Physical Exam - General Limitations: No Limitations General appearance: alert, in no apparent distress - Head Head exam: Present: atraumatic, normocephalic - Eye Eye exam: Present: normal appearance, PERRL, EOMI Pupils: Absent: normal accommodation - ENT ENT exam: Present: mucous membranes moist - Neck Neck exam: Present: normal inspection, full ROM. Absent: tenderness - Respiratory Respiratory exam: Present: normal lung sounds bilaterally, rhonchi. Absent: respiratory distress, wheezes, stridor, chest wall tenderness - Cardiovascular Cardiovascular Exam: Present: regular rate, normal rhythm, normal heart sounds. Absent: systolic murmur, diastolic murmur, rubs, gallop - GI/Abdominal GI/Abdominal exam: Present: soft, normal bowel sounds. Absent: distended, tenderness - Rectal Rectal exam: Present: deferred - Extremities Exam Extremities exam: Present: normal inspection, tenderness, normal capillary refill - Expanded Upper Extremity Exam Right Hand Wrist exam: Present: tenderness, swelling, crepidus, dislocation, erythema, other. Absent: abrasion, laceration, ecchymosis, deformity, amputation, nail avulsion, subungual hematoma Neuro motor exam: Present: wrist extension intact, thumb opposition intact, thumb IP flexion intact, thumb adduction intact Neurosensory exam: Present: radial nerve intact, other (decreased rom rihgt p2) Vascular: Present: normal capillary refill - Back Exam Back exam: Present: normal inspection, full ROM. Absent: tenderness, vertebral tenderness - Neurological Exam Neurological exam: Present: alert, altered, oriented X3, CN II-XII intact, normal gait, abnormal gait - Psychiatric Psychiatric exam: Present: normal affect - Skin Skin exam: Present: warm, dry, intact, normal color, erythema (right posterior mild finger jojunty aberl). Absent: rash ED Medical Decision Making - Radiology Data Radiology results: report reviewed, image reviewed Ordering Physician: JUSTO GOLDSMITH Date of Service: 06/21/20 Procedure(s): XR hand 3+V RT Accession Number(s): [id number] cc: JUSTO GOLDSMITH Fluoro Time In Minutes: RIGHT HAND 3 VIEWS 2033 INDICATION: acute middle finger/MC pain and swelling, no injury, history of metacarpal phalangeal joint surgery in November COMPARISON: 08/23/2019 FINDINGS: No fractures or dislocations are seen. No significant arthritic changes are noted. No foreign bodies are seen. No soft tissue gas is noted. No obvious changes are seen. Signer Name: Casey Taylor MD Signed: 06/21/2020 8:41 PM Workstation Name: [id number] Transcribed By: GJ Dictated By: Casey Taylor MD Electronically Authenticated By: Casey Taylor MD Signed Date/Time: 06/21/202040 DD/ 37 TD/TT: - Medical Decision Making X-ray right hand/ wrist no fracture no soft tissue abnormality. There is mild cellulitis , plan Keflex, Tylenol, follow-up with hand surgery take medications as prescribed as described, follow up wiht hand ortho surgeon , return to emegency if sympstoms worsen, pt verbalized agreement and understanding of same. ED Disposition Clinical Impression: Cellulitis of right middle finger, Pain of right middle finger Disposition: - TO HOME OR SELFCARE Is pt being admited?: No Does the pt Need Aspirin: No Condition: Stable Instructions: Cellulitis, Adult Additional Instructions: follow up with [facility] hand surgeon as directed in 2 days , take medications as prescribed, return to emergency if symptoms worsen. Prescriptions: cephALEXin [Keflex] 500 mg PO Q8HR 7 Days #[address] [Voltaren Dr] 75 mg PO TID PRN #30 tablet PRN Reason: pain Referrals: COLEMAN REYNOSO MD [Staff Physician] - 3-5 Days Forms: Work/School Release Form(ED) Time of Disposition: 22:55 <ISHMAEL MARTÍNEZ - Last Filed: 06/22/20 17:43> ED Review of Systems ROS: Stated complaint: SWOLLEN RIGHT MIDDLE FINGER Other details as noted in HPI ED Course Vital Signs 06/21/20 06/21/20 20:09 23:00 Temperature 98.4 F Pulse Rate 74 72 Respiratory 18 16 Rate Blood Pressure 131/70 O2 Sat by Pulse 99 100 Oximetry ED Medical Decision Making - Medical Decision Making As informed by Darian that The Keflex was not initially prescribed 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 Critical care attestation.: If time is entered above; I have spent that time in minutes in the direct care of this critically ill patient, excluding procedure time.
== END 2020-06-21 23:00 | disposition home or self-care (01) ==
LOC: ED 20:00
DX: L03.011 Cellulitis of right finger (principal); M79.644 Pain in right finger(s); J45.909 Unspecified asthma, uncomplicated; Z88.8 Allergy status to other drugs, medicaments and biological substances; Z79.899 Other long term (current) drug therapy; Z98.51 Tubal ligation status; Z98.890 Other specified postprocedural states; Z90.710 Acquired absence of both cervix and uterus

== ENCOUNTER 2021-01-22 15:04 | Emergency (ER) | payer OTHER ==
[2021-01-22 15:49] VITALS: BP 120/70
--- NOTE | 2021-01-22 16:36 | Emergency Department Report ---
ED Syncope HPI - General Chief Complaint: Syncope Stated Complaint: FAINTING X2 A WEEK Time Seen by Provider: 01/22/21 16:06 Source: patient Exam Limitations: no limitations - History of Present Illness Initial Comments: Chief complaint: I need to be honest. I have been past now for the last 2 years." HPI: This is a 35 female with history of asthma uterine fibroids status post hysterectomy. Who presents with recurrent syncope for the last 2 years. After prolonged standing she has tunnel vision. Vision would not start. She passed out briefly. Has occurred at least on a monthly basis. She has not seen her PCP CARMEN Ms. Blake and Dr. Ramírez's office in over 2 years. She has recently obtained health insurance. She is concerned for thyroid disease. She denies palpitations chest pain shortness of breath leg pain. She is not on oral contraceptives. She has had mood changes and unintentional weight loss over the last several months. She does smoke tobacco. Timing/Prior Episodes: recent history, remote history Precipitating Factors: Positive: lightheadedness, other (Dark tunnel vision) Context: standing Loss of Consciousness: brief (seconds) Current Symptoms: back to normal - Related Data Allergies/Adverse Reactions: Allergies acetaminophen [From Percocet] Allergy (Verified 06/21/20 20:03) Angioedema ketorolac tromethamine [From Toradol] Allergy (Verified 06/21/20 20:03) Anaphylaxis theophylline Allergy (Verified 06/21/20 20:03) Anaphylaxis tramadol Allergy (Verified 06/21/20 20:03) Anaphylaxis Home Medications: Ambulatory Orders Cyclobenzaprine [Flexeril 10 MG TAB] 10 mg PO TID PRN #12 tablet 05/08/19 Docusate Sodium [Colace CAP] 100 mg PO BID PRN #20 capsule 08/19/19 Famotidine [Pepcid] 40 mg PO QHS #30 tablet 08/19/19 Ondansetron [Zofran ODT TAB] 4 mg PO Q8HR PRN #12 tab.rapdis 08/19/19 Polyethylene Glycol 3350 [Miralax] 7 gm PO DAILY PRN #1 powder 08/19/19 Diclofenac Sodium 50 mg PO TID PRN #21 tablet. 08/23/19 ALBUTEROL NEB's [Proventil 0.083% NEBS] 2.5 mg IH Q4HRT PRN #7 nebu 01/09/20 Acetaminophen [Acetaminophen TAB] 650 mg PO Q4H PRN tablet 01/09/20 Arformoterol Nebu [Brovana Nebu] 15 mcg IH Q12HRT #1 ml 01/09/20 Budesonide [Pulmicort Respules] 0.5 mg IH Q12H #1 nebu 01/09/20 Ciprofloxacin HCl [Ciprofloxacin TAB] 500 mg PO Q12HR #10 tab 01/09/20 HYDROcodone/APAP 5-325 [[place] 5-325 mg TAB] 1 each PO Q6HR PRN #20 tablet 01/09/20 Nicotine [Habitrol] 14 mg TD DAILY #20 patch 01/09/[address] [Voltarealexa Dr] 75 mg PO TID PRN #30 tablet 06/21/20 cephALEXin [Keflex] 500 mg PO Q8HR 7 Days #21 cap 06/22/20 ED Review of Systems ROS: Stated complaint: FAINTING X2 A WEEK Other details as noted in HPI Comment: All other systems reviewed and negative Constitutional: denies: chills, fever, malaise Respiratory: denies: cough, shortness of breath Cardiovascular: syncope. denies: chest pain, palpitations Gastrointestinal: denies: abdominal pain, nausea, vomiting Neurological: denies: headache ED Past Medical Hx - Past Medical History Previous Medical History?: Yes Hx Congestive Heart Failure: No Hx Diabetes: No Hx Asthma: Yes Hx COPD: No Hx HIV: No Additional medical history: OVARIAN CYST, Uterine fibroids, Thyroid - Surgical History Past Surgical History?: Yes Hx Appendectomy: Yes Hx Breast Surgery: Yes (breast reduction) Additional Surgical History: Hysterectomy. tubal ligation - Family History Family history: cancer, other (No history of premature cardiac disease) - Social History Smoking Status: Current Some Day Smoker Substance Use Type: None - Medications Home Medications: Home Medications Medication Instructions Recorded Confirmed Last Taken Type Cyclobenzaprine [Flexeril 10 MG 10 mg PO TID PRN #12 tablet 05/08/19 Unknown Rx TAB] Docusate Sodium [Colace CAP] 100 mg PO BID PRN #20 capsule 08/19/19 Unknown Rx Famotidine [Pepcid] 40 mg PO QHS #30 tablet 08/19/19 Unknown Rx Ondansetron [Zofran ODT TAB] 4 mg PO Q8HR PRN #12 tab.rapdis 08/19/19 Unknown Rx Polyethylene Glycol 3350 [Miralax] 7 gm PO DAILY PRN #1 powder 08/19/19 Unknown Rx Diclofenac Sodium 50 mg PO TID PRN #21 tablet.dr 08/23/19 Unknown Rx ALBUTEROL NEB's [Proventil 0.083% 2.5 mg IH Q4HRT PRN #7 nebu 01/09/20 Unknown Rx NEBS] Acetaminophen [Acetaminophen TAB] 650 mg PO Q4H PRN tablet 01/09/20 Unknown Rx Arformoterol Nebu [Brovana Nebu] 15 mcg IH Q12HRT #1 ml 01/09/20 Unknown Rx Budesonide [Pulmicort Respules] 0.5 mg IH Q12H #1 nebu 01/09/20 Unknown Rx Ciprofloxacin HCl [Ciprofloxacin 500 mg PO Q12HR #10 tab 01/09/20 Unknown Rx TAB] HYDROcodone/APAP 5-325 [[place] 1 each PO Q6HR PRN #20 tablet 01/09/20 Unknown Rx 5-325 mg TAB] Nicotine [Habitrol] 14 mg TD DAILY #20 patch 01/09/[address] [Voltaren Dr] 75 mg PO TID PRN #30 tablet 06/21/20 Unknown Rx cephALEXin [Keflex] 500 mg PO Q8HR 7 Days #21 cap 06/22/20 Unknown Rx ED Physical Exam - General Limitations: No Limitations General appearance: alert, in no apparent distress, other (Well-appearing) - Head Head exam: Present: atraumatic, normocephalic - Eye Eye exam: Present: normal appearance - ENT ENT exam: Present: mucous membranes moist - Neck Neck exam: Present: normal inspection - Respiratory Respiratory exam: Present: normal lung sounds bilaterally. Absent: respiratory distress, wheezes, rales, rhonchi - Cardiovascular Cardiovascular Exam: Present: regular rate, normal rhythm, normal heart sounds. Absent: systolic murmur, diastolic murmur, rubs, gallop - GI/Abdominal GI/Abdominal exam: Present: soft, normal bowel sounds. Absent: distended, tenderness, guarding, rebound - Extremities Exam Extremities exam: Present: normal inspection - Neurological Exam Neurological exam: Present: alert, oriented X3 - Psychiatric Psychiatric exam: Present: normal affect, normal mood - Skin Skin exam: Present: warm, dry, intact, normal color. Absent: rash ED Course Vital Signs 01/22/21 15:48 Temperature 98.9 F Pulse Rate 75 Respiratory 20 Rate Blood Pressure 120/70 [Right] O2 Sat by Pulse 100 Oximetry ED Medical Decision Making - Medical Decision Making Recurrent syncope, suspect POTS disease. I recommended neurological consultation for tilt table test. Also recommended full history and physical by her PCP Ms. Luke Ramírez's office [place]. She has not had primary care access for over 2 years. PERC negative for PE. No indication of lethal arrhythmia. No indication for structural heart disease. Discharged home. Critical care attestation.: If time is entered above; I have spent that time in minutes in the direct care of this critically ill patient, excluding procedure time. ED Disposition Clinical Impression: Recurrent syncope Disposition: 01 HOME / SELF CARE / HOMELESS Is pt being admited?: No Does the pt Need Aspirin: No Condition: Stable Instructions: Syncope Additional Instructions: Please look up POTS disease. Referrals: MATHEW DAVIS MD [Referring] - 3-5 Days PRIMARY CAREMD [Referring] - 3-5 Days
== END 2021-01-22 17:07 | disposition home or self-care (01) ==
LOC: ED 15:04
DX: R55 Syncope and collapse (principal); J45.909 Unspecified asthma, uncomplicated; F17.200 Nicotine dependence, unspecified, uncomplicated; Z90.49 Acquired absence of other specified parts of digestive tract; Z90.710 Acquired absence of both cervix and uterus; Z98.51 Tubal ligation status; Z88.6 Allergy status to analgesic agent
CPT/HCPCS: 99282

== ENCOUNTER 2021-05-18 18:08 | Emergency (ER) | payer OTHER ==
[2021-05-18 18:39] VITALS: BP 123/77
[2021-05-18 20:20] LABS: Bilirubin,Urine NEG (Negative); Blood,Urine NEG (Negative); Color,Urine Yellow (Yellow); Mucus,Urine 2+ /HPF; Protein,Urine <15 mg/dL mg/dL (Negative)
[2021-05-18 20:23] LABS: HCG Qualitative,Urine Negative (Negative)
== END 2021-05-18 21:15 | disposition left against medical advice (07) ==
LOC: ED 18:08
DX: R10.30 Lower abdominal pain, unspecified (principal); Z53.21 Procedure and treatment not carried out due to patient leaving prior to being seen by health care provider
CPT/HCPCS: 81001; 81025

== ENCOUNTER 2021-06-06 13:52 | Emergency (ER) | payer OTHER ==
[2021-06-06] MEDS ORDERED: MORPHINE 4 MG/1 ML INJ IV ONE ×2 (15:55→19:15)
[2021-06-06] MEDS ORDERED: ONDANSETRON 4 MG/2 ML INJ IV ONE ×2 (15:55→19:15)
[2021-06-06 16:52] LABS: Hematocrit 37.8 % (30.3-42.9); Mean Corpuscular HGB Conc 34 % (30-34); Mean Corpuscular Volume 87 fl (79-97); Platelet Count 180 K/mm3 (140-440); Red Blood Count 4.36 M/mm3 (3.65-5.03); Red Cell Distribution Width 14.1 % (13.2-15.2)
[2021-06-06 17:07] LABS: Blood Urea Nitrogen 21 mg/dL (7-17); Calcium 9.6 mg/dL (8.4-10.2); Hemolysis Index 43
[2021-06-06 17:24] LABS: BUN/Creatinine Ratio 42
[2021-06-06 17:47] LABS: Alanine Aminotransferase 15 units/L (7-56); Albumin 4.5 g/dL (3.9-5)
--- NOTE | 2021-06-06 18:24 | Cat Scan Report ---
CT ABDOMEN AND PELVIS WITH CONTRAST HISTORY: abdominal pain. COMPARISON: None. TECHNIQUE: CT images of the abdomen and pelvis were obtained following administration of intravenous contrast. All CT scans at this location are performed using CT dose reduction for ALARA by means of automated exposure control. CONTRAST: 100 ml of intravenous contrast administered. FINDINGS: Lungs/bones: Lung bases are clear. No acute osseous abnormality identified. Abdomen/pelvis: The liver is slightly enlarged with no focal mass identified. The biliary tree is no rmal. The gallbladder, spleen, pancreas, adrenals, kidneys, and proximal GI tract appear unremarkable . Urinary bladder is unremarkable. There appears to be air within the vagina in the midline. The uterus is not well seen and could be absent--correlate with history. No acute colonic abnormality identifie d. IMPRESSION: 1. No acute abnormality identified. Incidental findings as above. Signer Name: Jensen Munoz MD Signed: 06/06/2021 6:19 PM Workstation Name: [id number]
[2021-06-06 18:44] LABS: Mucus,Urine 1+ /HPF
[2021-06-06 19:08] LABS: Bilirubin,Urine Negative (Negative); Color,Urine Yellow (Yellow)
[2021-06-06 19:09] LABS: Blood,Urine Negative (Negative)
[2021-06-06 19:10] LABS: Urobilinogen,Urine < 2.0 mg/dL (<2.0)
--- NOTE | 2021-06-06 19:19 | Emergency Department Report ---
ED Abdominal Pain HPI - General Chief Complaint: Abdominal Pain Stated Complaint: ABD PAIN Time Seen by Provider: 06/06/21 15:36 Source: patient Mode of arrival: Ambulatory Limitations: No Limitations - History of Present Illness Initial Comments: 35-year-old black female with past medical history of asthma presents to the emergency department for evaluation of 3 to 4-week history of worsening abdominal pain. She denies fever, nausea, vomiting, diarrhea, and vaginal discharge, but states that she has had some dysuria over the past few days. He states that about 1 to 2 weeks ago she was treated for H. pylori and is concerned that treatment was not effective. She has a history of a hysterectomy. MD Complaint: abdominal pain -: Gradual, week(s) (3-4) Location: LLQ, RLQ Severity: severe Severity scale (0 -10): 9 Quality: aching Consistency: constant Worsens With: movement Associated Symptoms: dysuria. denies: nausea, vomiting, diarrhea, fever, chills, hematemesis, hematochezia, melena, hematuria, anorexia, syncope - Related Data Previous Rx's Medication Instructions Recorded Last Taken Type Cyclobenzaprine [Flexeril 10 MG 10 mg PO TID PRN #12 tablet 05/08/19 Unknown Rx TAB] Docusate Sodium [Colace CAP] 100 mg PO BID PRN #20 capsule 08/19/19 Unknown Rx Famotidine [Pepcid] 40 mg PO QHS #30 tablet 08/19/19 Unknown Rx Ondansetron [Zofran ODT TAB] 4 mg PO Q8HR PRN #12 tab.rapdis 08/19/19 Unknown Rx Polyethylene Glycol 3350 [Miralax] 7 gm PO DAILY PRN #1 powder 08/19/19 Unknown Rx Diclofenac Sodium 50 mg PO TID PRN #21 tablet. 08/23/19 Unknown Rx ALBUTEROL NEB's [Proventil 0.083% 2.5 mg IH Q4HRT PRN #7 nebu 01/09/20 Unknown Rx NEBS] Acetaminophen [Acetaminophen TAB] 650 mg PO Q4H PRN tablet 01/09/20 Unknown Rx Arformoterol Nebu [Brovana Nebu] 15 mcg IH Q12HRT #1 ml 01/09/20 Unknown Rx Budesonide [Pulmicort Respules] 0.5 mg IH Q12H #1 nebu 01/09/20 Unknown Rx Ciprofloxacin HCl [Ciprofloxacin 500 mg PO Q12HR #10 tab 01/09/20 Unknown Rx TAB] HYDROcodone/APAP 5-325 [[place] 1 each PO Q6HR PRN #20 tablet 01/09/20 Unknown Rx 5-325 mg TAB] Nicotine [Habitrol] 14 mg TD DAILY #20 patch 01/09/[address] [Voltaren Dr] 75 mg PO TID PRN #30 tablet 06/21/20 Unknown Rx cephALEXin [Keflex] 500 mg PO Q8HR 7 Days #21 cap 06/22/20 Unknown Rx Allergies Allergy/AdvReac Type Severity Reaction Status Date / Time acetaminophen [From Percocet] Allergy Angioedema Verified 06/21/20 20:03 ketorolac tromethamine Allergy Anaphylaxis Verified 06/21/20 20:03 [From Toradol] theophylline Allergy Anaphylaxis Verified 06/21/20 20:03 tramadol Allergy Anaphylaxis Verified 06/21/20 20:03 ED Review of Systems ROS: Stated complaint: ABD PAIN Other details as noted in HPI Comment: All other systems reviewed and negative Constitutional: denies: chills, diaphoresis, fever, malaise, weakness Eyes: denies: eye pain, eye discharge ENT: denies: ear pain, throat pain, dental pain, congestion Respiratory: denies: cough, shortness of breath Cardiovascular: denies: chest pain, palpitations, dyspnea on exertion, orthopnea, edema, syncope, paroxysmal nocturnal dyspnea Endocrine: no symptoms reported Gastrointestinal: abdominal pain. denies: nausea, vomiting, diarrhea, hematemesis, melena, hematochezia Genitourinary: dysuria. denies: urgency, frequency, hematuria, discharge Musculoskeletal: denies: back pain Skin: denies: rash, lesions Neurological: denies: headache, weakness Psychiatric: denies: anxiety, depression Hematological/Lymphatic: denies: easy bleeding, easy bruising ED Past Medical Hx - Past Medical History Hx Congestive Heart Failure: No Hx Diabetes: No Hx Asthma: Yes Hx COPD: No Hx HIV: No Additional medical history: OVARIAN CYST, Uterine fibroids, Thyroid - Surgical History Hx Appendectomy: Yes Hx Breast Surgery: Yes (breast reduction) Additional Surgical History: Hysterectomy. tubal ligation - Social History Smoking Status: Current Some Day Smoker Substance Use Type: None - Medications Home Medications: Home Medications Medication Instructions Recorded Confirmed Last Taken Type Cyclobenzaprine [Flexeril 10 MG 10 mg PO TID PRN #12 tablet 05/08/19 Unknown Rx TAB] Docusate Sodium [Colace CAP] 100 mg PO BID PRN #20 capsule 08/19/19 Unknown Rx Famotidine [Pepcid] 40 mg PO QHS #30 tablet 08/19/19 Unknown Rx Ondansetron [Zofran ODT TAB] 4 mg PO Q8HR PRN #12 tab.rapdis 08/19/19 Unknown Rx Polyethylene Glycol 3350 [Miralax] 7 gm PO DAILY PRN #1 powder 08/19/19 Unknown Rx Diclofenac Sodium 50 mg PO TID PRN #21 tablet.dr 08/23/19 Unknown Rx ALBUTEROL NEB's [Proventil 0.083% 2.5 mg IH Q4HRT PRN #7 nebu 01/09/20 Unknown Rx NEBS] Acetaminophen [Acetaminophen TAB] 650 mg PO Q4H PRN tablet 01/09/20 Unknown Rx Arformoterol Nebu [Brovana Nebu] 15 mcg IH Q12HRT #1 ml 01/09/20 Unknown Rx Budesonide [Pulmicort Respules] 0.5 mg IH Q12H #1 nebu 01/09/20 Unknown Rx Ciprofloxacin HCl [Ciprofloxacin 500 mg PO Q12HR #10 tab 01/09/20 Unknown Rx TAB] HYDROcodone/APAP 5-325 [[place] 1 each PO Q6HR PRN #20 tablet 01/09/20 Unknown Rx 5-325 mg TAB] Nicotine [Habitrol] 14 mg TD DAILY #20 patch 01/09/[address] [Nica Mercado] 75 mg PO TID PRN #30 tablet 06/21/20 Unknown Rx cephALEXin [Keflex] 500 mg PO Q8HR 7 Days #21 cap 06/22/20 Unknown Rx ED Physical Exam - General Limitations: No Limitations General appearance: alert, in no apparent distress - Head Head exam: Present: atraumatic, normocephalic - Eye Eye exam: Present: normal appearance. Absent: scleral icterus, conjunctival injection - Neck Neck exam: Present: normal inspection. Absent: tenderness, lymphadenopathy - Respiratory Respiratory exam: Present: normal lung sounds bilaterally. Absent: respiratory distress, wheezes, rales, rhonchi, stridor, chest wall tenderness - Cardiovascular Cardiovascular Exam: Present: regular rate, normal heart sounds - GI/Abdominal GI/Abdominal exam: Present: soft, tenderness (Bilateral lower quadrant), guarding, normal bowel sounds. Absent: distended, rebound, rigid - Extremities Exam Extremities exam: Present: normal inspection - Back Exam Back exam: Present: normal inspection. Absent: CVA tenderness (R) - Neurological Exam Neurological exam: Present: alert, oriented X3 - Psychiatric Psychiatric exam: Present: normal affect, normal mood - Skin Skin exam: Present: warm, dry, intact, normal color ED Course Vital Signs 06/06/21 06/06/21 06/06/21 14:14 19:40 19:56 Temperature 98.3 F 97.9 F Pulse Rate 71 63 Respiratory 16 16 16 Rate Blood Pressure 122/70 Blood Pressure 116/57 [Right] O2 Sat by Pulse 99 99 Oximetry ED Medical Decision Making - Lab Data Result diagrams: 06/06/21 16:17 06/06/21 16:17 - Radiology Data Radiology results: report reviewed CT abdomen pelvis with contrast FINDINGS: Lungs/bones: Lung bases are clear. No acute osseous abnormality identified. Abdomen/pelvis: The liver is slightly enlarged with no focal mass identified. The biliary tree is normal. The gallbladder, spleen, pancreas, adrenals, kidneys, and proximal GI tract appear unremarkable. Urinary bladder is unremarkable. There appears to be air within the vagina in the midline. The uterus is not well seen and could be absent--correlate with history. No acute colonic abnormality identified. IMPRESSION: 1. No acute abnormality identified. Incidental findings as above. - Medical Decision Making 35-year-old black female with past medical history of asthma presents to the emergency department for evaluation of 3 to 4-week history of worsening abdominal pain. She denies fever, nausea, vomiting, diarrhea, and vaginal discharge, but states that she has had some dysuria over the past few days. He states that about 1 to 2 weeks ago she was treated for H. pylori and is concerned that treatment was not effective. She has a history of a hysterectomy. CT abdomen and pelvis without any acute abnormalities. No gross abnormalities noted to labs. Urine negative for urinary tract infection. Pain moderately improved after medications. No acute distress noted. 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 She was advised to return to the emergency department for any concerning symptoms. She verbalized understanding of and agreement with plan of care. Critical care attestation.: If time is entered above; I have spent that time in minutes in the direct care of this critically ill patient, excluding procedure time. ED Disposition Clinical Impression: Abdominal pain Qualifiers: Abdominal location: lower abdomen, unspecified Qualified Code(s): R10.30 - Lower abdominal pain, unspecified Disposition: HOME / SELF CARE / HOMELESS Is pt being admited?: No Does the pt Need Aspirin: No Condition: Stable Instructions: Abdominal Pain, Adult, [id number], Abdominal Pain (ED) Additional Instructions: Follow-up with GI specialist for further evaluation. Referrals: JESSICA ZALDIVAR MD [Staff Physician] - 3-5 Days Forms: Work/School Release Form(ED) Time of Disposition: 19:19
[2021-06-06 19:58] VITALS: BP 116/57
== END 2021-06-06 19:58 | disposition home or self-care (01) ==
LOC: ED 13:52
DX: R10.9 Unspecified abdominal pain (principal); F17.200 Nicotine dependence, unspecified, uncomplicated; J45.909 Unspecified asthma, uncomplicated; Z90.89 Acquired absence of other organs
CPT/HCPCS: 36415; 74177; 80053; 81001; 83690; 84703; 85027; 96374; 96375; 96376; 99284; J2270; J2405; Q9967

== ENCOUNTER 2021-06-29 12:19 | Emergency (ER) | payer OTHER ==
[2021-06-29 13:11] VITALS: BP 104/65
[2021-06-29] MEDS ORDERED: IBUPROFEN 800 MG TAB PO ONE (13:22)
--- NOTE | 2021-06-29 13:22 | Emergency Department Report ---
ED Extremity Problem HPI - General Chief complaint: Extremity Injury, Upper Stated complaint: RT MIDDLE KNUCLE SWOLLEN NUMB Time Seen by Provider: 06/29/21 13:22 Source: patient Mode of arrival: Ambulatory Limitations: No Limitations - History of Present Illness Initial comments: Patient is a 35-year-old female that comes to the ER complaining of right proximal third finger pain. She states she woke up and her finger was swollen. She denies any trauma. She denies a history of this in the past. However, she has had surgery on this hand. There is an incision. And she has been here before for finger pain. Note allergies. Patient is neurovascularly intact with full range of motion. There is no cellulitis abscess or sign of infection. MD Complaint: extremity pain -: Sudden Location: right History of Same: Yes Consistency: constant Improves with: nothing Worsens with: nothing Associated Symptoms: denies other symptoms - Related Data Previous Rx's Medication Instructions Recorded Last Taken Type Docusate Sodium [Colace CAP] 100 mg PO BID PRN #20 capsule 08/19/19 Unknown Rx Famotidine [Pepcid] 40 mg PO QHS #30 tablet 08/19/19 Unknown Rx Polyethylene Glycol 3350 [Miralax] 7 gm PO DAILY PRN #1 powder 08/19/19 Unknown Rx Diclofenac Sodium 50 mg PO TID PRN #21 tablet. 08/23/19 Unknown Rx ALBUTEROL NEB's [Proventil 0.083% 2.5 mg IH Q4HRT PRN #7 nebu 01/09/20 Unknown Rx NEBS] Arformoterol Nebu [Brovana Nebu] 15 mcg IH Q12HRT #1 ml 01/09/20 Unknown Rx Budesonide [Pulmicort Respules] 0.5 mg IH Q12H #1 nebu 01/09/20 Unknown Rx Nicotine [Habitrol] 14 mg TD DAILY #20 patch 01/09/20 Unknown Rx Fab Mercado [Nica Mercado] 75 mg PO TID PRN #30 tablet 06/21/20 Unknown Rx Allergies Allergy/AdvReac Type Severity Reaction Status Date / Time acetaminophen [From Percocet] Allergy Angioedema Verified 06/21/20 20:03 ketorolac tromethamine Allergy Anaphylaxis Verified 06/21/20 20:03 [From Toradol] theophylline Allergy Anaphylaxis Verified 06/21/20 20:03 tramadol Allergy Anaphylaxis Verified 06/21/20 20:03 ED Review of Systems ROS: Stated complaint: RT MIDDLE KNUCLE SWOLLEN NUMB Other details as noted in HPI Comment: All other systems reviewed and negative ED Past Medical Hx - Past Medical History Previous Medical History?: Yes Hx Congestive Heart Failure: No Hx Diabetes: No Hx Asthma: Yes Hx COPD: No Hx HIV: No Additional medical history: OVARIAN CYST, Uterine fibroids, Thyroid, status post right hand surgery with acute on chronic pain - Surgical History Past Surgical History?: Yes Hx Appendectomy: Yes Hx Breast Surgery: Yes (breast reduction) Additional Surgical History: Hysterectomy,breast reduction, appendix surgery, left rotator cuff surgery, right midle finger. tubal ligation - Family History Family history: no significant - Social History Smoking Status: Current Every Day Smoker Substance Use Type: None - Medications Home Medications: Home Medications Medication Instructions Recorded Confirmed Last Taken Type Docusate Sodium [Colace CAP] 100 mg PO BID PRN #20 capsule 08/19/19 Unknown Rx Famotidine [Pepcid] 40 mg PO QHS #30 tablet 08/19/19 Unknown Rx Polyethylene Glycol 3350 [Miralax] 7 gm PO DAILY PRN #1 powder 08/19/19 Unknown Rx Diclofenac Sodium 50 mg PO TID PRN #21 tablet. 08/23/19 Unknown Rx ALBUTEROL NEB's [Proventil 0.083% 2.5 mg IH Q4HRT PRN #7 nebu 01/09/20 Unknown Rx NEBS] Arformoterol Nebu [Brovana Nebu] 15 mcg IH Q12HRT #1 ml 01/09/20 Unknown Rx Budesonide [Pulmicort Respules] 0.5 mg IH Q12H #1 nebu 01/09/20 Unknown Rx Nicotine [Habitrol] 14 mg TD DAILY #20 patch 01/09/[address] [Voltarealexa Dr] 75 mg PO TID PRN #30 tablet 06/21/20 Unknown Rx ED Physical Exam - General Limitations: No Limitations General appearance: alert, in no apparent distress - Head Head exam: Present: atraumatic, normocephalic - Eye Eye exam: Present: normal appearance - ENT ENT exam: Present: mucous membranes moist - Neck Neck exam: Present: normal inspection - Respiratory Respiratory exam: Present: normal lung sounds bilaterally. Absent: respiratory distress - Cardiovascular Cardiovascular Exam: Present: regular rate, normal rhythm. Absent: systolic mur mur, diastolic murmur, rubs, gallop - GI/Abdominal GI/Abdominal exam: Present: soft, normal bowel sounds - Extremities Exam Extremities exam: Present: normal inspection - Back Exam Back exam: Present: normal inspection - Neurological Exam Neurological exam: Present: alert, oriented X3 - Psychiatric Psychiatric exam: Present: normal affect, normal mood - Skin Skin exam: Present: warm, dry, intact, normal color. Absent: rash ED Course Vital Signs 06/29/21 13:08 Temperature 98.4 F Pulse Rate 73 Respiratory 18 Rate Blood Pressure 104/65 [Right] O2 Sat by Pulse 100 Oximetry ED Medical Decision Making - Radiology Data Radiology results: report reviewed, image reviewed See report - Medical Decision Making Vital Signs 06/29/21 13:08 Temperature 98.4 F Pulse Rate 73 Respiratory 18 Rate Blood Pressure 104/65 [Right] O2 Sat by Pulse 100 Oximetry Neurovascularly intact. Rapid cap refill. Full range of motion. Patient denies this is an acute on chronic injury but EMR review indicates something different. Please note allergies. - Differential Diagnosis Rule out fracture Critical care attestation.: If time is entered above; I have spent that time in minutes in the direct care of this critically ill patient, excluding procedure time. ED Disposition Clinical Impression: Hand pain, right Disposition: HOME / SELF CARE / HOMELESS Is pt being admited?: No Does the pt Need Aspirin: No Condition: Stable Instructions: Hand Pain Additional Instructions: [id number] Motrin and Tylenol for your pain. Follow-up with PCP if you have ongoing problems. I have given you referral below. Alternating cold and warm compresses may also help with your discomfort today. There is no evidence of infection. X-ray shows no fracture Referrals: COLEMAN REYNOSO MD [Staff Physician] - 3-5 Days Time of Disposition: 13:24
--- NOTE | 2021-06-29 14:20 | XRay Report ---
XR hand 2V RT INDICATION / CLINICAL INFORMATION: HAND PAIN. COMPARISON: Right hand x-rays on 06/21/2021 FINDINGS: BONES/JOINT(S): No acute fracture or subluxation. No significant degenerative changes. SOFT TISSUES: No significant abnormality. ADDITIONAL FINDINGS: None. Signer Name: John López MD Signed: 06/29/2021 2:15 PM Workstation Name: [id number]
== END 2021-06-29 14:52 | disposition home or self-care (01) ==
LOC: ED 12:19
DX: M79.641 Pain in right hand (principal); Z88.5 Allergy status to narcotic agent; J45.909 Unspecified asthma, uncomplicated; Z90.89 Acquired absence of other organs; F17.200 Nicotine dependence, unspecified, uncomplicated
CPT/HCPCS: 99283

== ENCOUNTER 2021-08-08 14:37 | Emergency (ER) | payer OTHER ==
[2021-08-08] MEDS ORDERED: hydrOXYzine HCL 25 MG TAB PO ONE (21:01)
--- NOTE | 2021-08-08 21:03 | Emergency Department Report ---
ED General Adult HPI - General Chief complaint: Weakness Stated complaint: BODY ACHES/SYNCOPE PUI?: Yes Time Seen by Provider: 08/08/21 20:49 Source: patient, RN notes reviewed, old records reviewed Mode of arrival: Ambulatory Limitations: No Limitations - History of Present Illness Initial comments: The patient was evaluated in the emergency department for symptoms described in the history of present illness. He/she was evaluated in the context of the global COVID-19 pandemic, which necessitated consideration that the patient might be at risk for infection with the virus that causes COVID-19. Institutional protocols and algorithms that pertain to the evaluation of patients at risk for COVID-19 are in a state of rapid change based on information released by regulatory bodies including the CDC and federal and state organizations. These policies and algorithms were followed during the patient's care in the emergency department. Please note that these policies, procedures and recommendations changed on a rapid basis. During the history and physical examination, had on complete personal protective equipment. The patient is a 35-year-old female, who is COVID-19 vaccinated, but does not have her booster, distant history of hysterectomy, history of asthma, presenting to the ER today with complaints of generalized weakness, dysuria, nonspecific pruritic skin lesions, unintentional weight loss, malaise and fatigue. Denies headache, neck pain, chest pain, abdominal pain. Positive chronic shortness of breath. Positive dysuria. Of note, patient reports unprovoked syncope while sitting down yesterday. Yfn martinez denies DVT/PE risk factors. Patient reports that she "passes out a lot." She is still smoking, but reports that she is trying to "cut back." -: days(s) Severity scale (0 -10): 5 Consistency: constant Improves with: rest Worsens with: movement - Related Data Previous Rx's Medication Instructions Recorded Last Taken Type Docusate Sodium [Colace CAP] 100 mg PO BID PRN #20 capsule 08/19/19 Unknown Rx Famotidine [Pepcid] 40 mg PO QHS #30 tablet 08/19/19 Unknown Rx Polyethylene Glycol 3350 [Miralax] 7 gm PO DAILY PRN #1 powder 08/19/19 Unknown Rx Diclofenac Sodium 50 mg PO TID PRN #21 tablet. 08/23/19 Unknown Rx ALBUTEROL NEB's [Proventil 0.083% 2.5 mg IH Q4HRT PRN #7 nebu 01/09/20 Unknown Rx NEBS] Arformoterol Nebu [Brovana Nebu] 15 mcg IH Q12HRT #1 ml 01/09/20 Unknown Rx Budesonide [Pulmicort Respules] 0.5 mg IH Q12H #1 nebu 01/09/20 Unknown Rx Nicotine [Habitrol] 14 mg TD DAILY #20 patch 01/09/[address] [Voltaren Dr] 75 mg PO TID PRN #30 tablet 06/21/20 Unknown Rx Albuterol Sulfate [Albuterol 0.63% 0.63 mg IH Q4HR PRN #2 ml 08/08/21 Unknown Rx NEBS] Albuterol Sulfate [Proair 90 mcg IH Q4HR PRN #2 aer.pow.ba 08/08/21 Unknown Rx Respiclick] Nicotine Polacrilex [Nicotine Gum] 4 mg BC PRN #1 pack 08/08/21 Unknown Rx Permethrin 5% [Acticin 5% CREAM] 1 applicatio TP ONCE #2 tube 08/08/21 Unknown Rx hydrOXYzine HCL [Atarax] 25 mg PO Q6HR PRN #15 tablet 08/08/21 Unknown Rx Allergies Allergy/AdvReac Type Severity Reaction Status Date / Time acetaminophen [From Percocet] Allergy Angioedema Verified 08/08/21 20:33 ketorolac tromethamine Allergy Anaphylaxis Verified 08/08/21 20:33 [From Toradol] theophylline Allergy Anaphylaxis Verified 08/08/21 20:33 tramadol Allergy Anaphylaxis Verified 08/08/21 20:33 ED Review of Systems ROS: Stated complaint: BODY ACHES/SYNCOPE Other details as noted in HPI Constitutional: malaise, weakness. denies: fever Eyes: denies: eye discharge ENT: denies: epistaxis Respiratory: shortness of breath. denies: cough Cardiovascular: syncope Gastrointestinal: denies: abdominal pain Genitourinary: dysuria Musculoskeletal: myalgia Skin: rash Neurological: weakness Hematological/Lymphatic: denies: easy bleeding ED Past Medical Hx - Past Medical History Hx Congestive Heart Failure: No Hx Diabetes: No Hx Asthma: Yes Hx COPD: No Hx HIV: No Additional medical history: OVARIAN CYST, Uterine fibroids, Thyroid, status post right hand surgery with acute on chronic pain - Surgical History Hx Appendectomy: Yes Hx Breast Surgery: Yes (breast reduction) Additional Surgical History: Hysterectomy,breast reduction, appendix surgery, left rotator cuff surgery, right midle finger. tubal ligation - Social History Smoking Status: Never Smoker - Medications Home Medications: Home Medications Medication Instructions Recorded Confirmed Last Taken Type Docusate Sodium [Colace CAP] 100 mg PO BID PRN #20 capsule 08/19/19 08/08/21 Unknown Rx Famotidine [Pepcid] 40 mg PO QHS #30 tablet 08/19/19 08/08/21 Unknown Rx Polyethylene Glycol 3350 [Miralax] 7 gm PO DAILY PRN #1 powder 08/19/19 08/08/21 Unknown Rx Diclofenac Sodium 50 mg PO TID PRN #21 tablet. 08/23/19 08/08/21 Unknown Rx ALBUTEROL NEB's [Proventil 0.083% 2.5 mg IH Q4HRT PRN #7 nebu 01/09/20 08/08/21 Unknown Rx NEBS] Arformoterol Nebu [Brovana Nebu] 15 mcg IH Q12HRT #1 ml 01/09/20 08/08/21 Unknown Rx Budesonide [Pulmicort Respules] 0.5 mg IH Q12H #1 nebu 01/09/20 08/08/21 Unknown Rx Nicotine [Habitrol] 14 mg TD DAILY #20 patch 01/09/20 08/08/21 Unknown Rx Fab Mercado [Nica Mercado] 75 mg PO TID PRN #30 tablet 06/21/20 08/08/21 Unknown Rx Albuterol Sulfate [Albuterol 0.63% 0.63 mg IH Q4HR PRN #2 ml 08/08/21 Unknown Rx NEBS] Albuterol Sulfate [Proair 90 mcg IH Q4HR PRN #2 aer.pow.ba 08/08/21 Unknown Rx Respiclick] Nicotine Polacrilex [Nicotine Gum] 4 mg BC PRN #1 pack 08/08/21 Unknown Rx Permethrin 5% [Acticin 5% CREAM] 1 applicatio TP ONCE #2 tube 08/08/21 Unknown Rx hydrOXYzine HCL [Atarax] 25 mg PO Q6HR PRN #15 tablet 08/08/21 Unknown Rx ED Physical Exam - General Limitations: No Limitations General appearance: alert, in no apparent distress - Head Head exam: Present: atraumatic, normocephalic - Eye Eye exam: Present: normal appearance, EOMI. Absent: nystagmus - ENT ENT exam: Present: normal exam, normal orophraynx, mucous membranes moist, normal external ear exam - Neck Neck exam: Present: normal inspection, full ROM. Absent: tenderness, meningismus - Respiratory Respiratory exam: Present: other (Pulmonary auscultation not performed secondary to lack of disposable stethoscope). Absent: wheezes, rales, rhonchi, stridor, accessory muscle use - Cardiovascular Cardiovascular Exam: Present: other (Cardiac auscultation not performed secondary to lack of disposable stethoscope) - GI/Abdominal GI/Abdominal exam: Present: soft. Absent: distended, tenderness, guarding, rebound, rigid, pulsatile mass - Extremities Exam Extremities exam: Present: normal inspection, full ROM, other (2+ pulses noted in the bilateral upper and lower extremities. There is no palpable cord. negative Homans sign. Muscular compartments are soft. The pelvis is stable.). Absent: pedal edema, calf tenderness - Back Exam Back exam: Present: normal inspection. Absent: tenderness, CVA tenderness (R), CVA tenderness (L), paraspinal tenderness, vertebral tenderness - Neurological Exam Neurological exam: Present: alert, oriented X3, other (No facial droop. Tongue midline. Extraocular movements intact bilaterally. Facial sensation intact to light touch in V1, V2, V3 distribution bilaterally. 5 and a 5 strength in 4 extremities. Sensation intact to light touch in 4 extremities.). Absent: motor sensory deficit - Psychiatric Psychiatric exam: Present: anxious - Skin Skin exam: Present: warm, dry, intact, normal color, other (Nonspecific pustules noted on the face, anterior chest, and arm). Absent: cyanosis, diaphoretic, erythema, urticaria, vesicles, petechiae, pallor, abrasion, ecchymosis ED Course Vital Signs 08/08/21 08/08/21 08/08/21 15:25 20:22 20:23 Temperature 98.3 F 98.9 F Pulse Rate 72 73 Respiratory 18 16 Rate Blood Pressure 130/74 Blood Pressure 128/75 [Right] O2 Sat by Pulse 99 100 100 Oximetry 08/08/21 08/08/21 20:31 21:50 Temperature 98.5 F 98.2 F Pulse Rate 77 70 Respiratory 16 16 Rate Blood Pressure 124/78 Blood Pressure 123/77 [Right] O2 Sat by Pulse 100 100 Oximetry - Reevaluation(s) Reevaluation #1: 08/08/21 21:12 Differential diagnosis, include but not limited to: Pneumonia, UTI, COVID, insect bites, electrolyte derangement, thyroid derangement Orthostasis, vagal event Assessment and plan: 35-year-old female with multiple complaints, including multiple skin lesions, suspicious for pustules/bites, generalized malaise, unintentional weight loss, chronic shortness of breath, dysuria, and unprovoked syncope/loss of consciousness yesterday. The patient is not currently tachycardic, tachypneic or hypoxic, and I find her to be low risk by Wells criteria for pulmonary embolism, and she is PERC negative. She has a GCS of 15, with a nonfocal motor neurologic examination. Heart rate 64 bpm, saturating at 100% on room air. Reports having had outpatient laboratory studies recently, including thyroid panel which were unremarkable. She further reports that she follows up with a primary care doctor by the name of Dr. Jackson. She does not have an established diagnosis of lupus that she is aware of, nor does she have a known oncologic diagnosis. Patient reports a negative COVID test last week. Patient unfortunately has endorsed multiple allergies to acetaminophen, ketorolac, and tramadol. Her physical exam is not demonstrative of any condition that would require narcotic therapy parenterally or orally at this time. Patient will be given Atarax for pruritus. Place patient on isolation for possible COVID-19. Obtain x-ray of the chest, laboratory studies, urinalysis, and reassess. Patient is advised to not drive or operate motor vehicles for the next 6 months, given history of syncope. EKG is essentially unremarkable. 08/08/21 22:53 Patient has been observed in this department for hours without clinical decompensation. X-ray of the chest unremarkable. Patient declined Atarax. She is found to be very minimally hypokalemic. Laboratory studies otherwise nonactionable. UA not consistent with UTI. Patient has not had any episodes of loss of consciousness while here in the emergency room. She may be discharged with expectant management and outpatient follow-up ED Medical Decision Making - Lab Data Result diagrams: 08/08/21 22:02 08/08/21 22:02 Vital Signs 08/08/21 08/08/21 08/08/21 15:25 20:22 20:23 Temperature 98.3 F 98.9 F Pulse Rate 72 73 Respiratory 18 16 Rate Blood Pressure 130/74 Blood Pressure 128/75 [Right] O2 Sat by Pulse 99 100 100 Oximetry 08/08/21 20:31 Temperature 98.5 F Pulse Rate 77 Respiratory 16 Rate Blood Pressure 124/78 Blood Pressure [Right] O2 Sat by Pulse 100 Oximetry Lab Results 08/08/21 08/08/21 08/08/21 Range/Units 21:04 22:02 22:02 WBC 4.6 (4.5-11.0) K/mm3 RBC 4.45 (3.65-5.03) M/mm3 Hgb 12.6 (10.1-14.3) gm/dl Hct 39.3 (30.3-42.9) % MCV 88 (79-97) fl MCH 28 (28-32) pg MCHC 32 (30-34) % RDW 13.2 (13.2-15.2) % Plt Count 141 (140-440) K/mm3 Lymph % (Auto) 33.5 (13.4-35.0) % [facility] % (Auto) 13.7 H (0.0-7.3) % Eos % (Auto) 2.6 (0.0-4.3) % Baso % (Auto) 1.1 (0.0-1.8) % Lymph # (Auto) 1.5 (1.2-5.4) K/mm3 [facility] # (Auto) 0.6 (0.0-0.8) K/mm3 Eos # (Auto) 0.1 (0.0-0.4) K/mm3 Baso # (Auto) 0.1 (0.0-0.1) K/mm3 Seg Neutrophils % 49.1 (40.0-70.0) % Seg Neutrophils # 2.3 (1.8-7.7) K/mm3 PT 14.2 (12.2-14.9) Sec. INR 0.99 (0.87-1.13) Sodium (137-145) mmol/L Potassium (3.6-5.0) mmol/L Chloride (98-107) mmol/L Carbon Dioxide (22-30) mmol/L Anion Gap mmol/L BUN (7-17) mg/dL Creatinine (0.6-1.2) mg/dL Estimated GFR ml/min BUN/Creatinine Ratio % Glucose (65-100) mg/dL Calcium (8.4-10.2) mg/dL Magnesium (1.7-2.3) mg/dL Total Bilirubin (0.1-1.2) mg/dL AST (5-40) units/L ALT (7-56) units/L Alkaline Phosphatase (35-129) units/L Total Creatine Kinase (30-135) units/L Troponin T (0.00-0.029) ng/mL Total Protein (6.3-8.2) g/dL Albumin (3.9-5) g/dL Albumin/Globulin Ratio % Urine Color Yellow (Yellow) Urine Turbidity Clear (Clear) Urine pH 5.0 (5.0-7.0) Ur Specific [place] 1.024 (1.003-1.030) Urine Protein 30 mg/dl (Negative) mg/dL Urine Glucose (UA) Neg (Negative) mg/dL Urine Ketones Tr (Negative) mg/dL Urine Blood Neg (Negative) Urine Nitrite Neg (Negative) Urine Bilirubin Neg (Negative) Urine Urobilinogen 4.0 (<2.0) mg/dL Ur Leukocyte Esterase Sm (Negative) Urine WBC (Auto) 4.0 (0.0-6.0) /HPF Urine RBC (Auto) < 1.0 (0.0-6.0) /HPF U Epithel Cells (Auto) 7.0 (0-13.0) /HPF Urine Mucus 3+ /HPF 08/08/21 Range/Units 22:02 WBC (4.5-11.0) K/mm3 RBC (3.65-5.03) M/mm3 Hgb (10.1-14.3) gm/dl Hct (30.3-42.9) % MCV (79-97) fl MCH (28-32) pg MCHC (30-34) % RDW (13.2-15.2) % Plt Count (140-440) K/mm3 Lymph % (Auto) (13.4-35.0) % [facility] % (Auto) (0.0-7.3) % Eos % (Auto) (0.0-4.3) % Baso % (Auto) (0.0-1.8) % Lymph # (Auto) (1.2-5.4) K/mm3 [facility] # (Auto) (0.0-0.8) K/mm3 Eos # (Auto) (0.0-0.4) K/mm3 Baso # (Auto) (0.0-0.1) K/mm3 Seg Neutrophils % (40.0-70.0) % Seg Neutrophils # (1.8-7.7) K/mm3 PT (12.2-14.9) Sec. INR (0.87-1.13) Sodium 138 (137-145) mmol/L Potassium 3.3 L (3.6-5.0) mmol/L Chloride 102.3 (98-107) mmol/L Carbon Dioxide 24 (22-30) mmol/L Anion Gap 15 mmol/L BUN 20 H (7-17) mg/dL Creatinine 0.5 L (0.6-1.2) mg/dL Estimated GFR > 60 ml/min BUN/Creatinine Ratio 40 % Glucose 88 (65-100) mg/dL Calcium 8.7 (8.4-10.2) mg/dL Magnesium 2.00 (1.7-2.3) mg/dL Total Bilirubin 1.20 (0.1-1.2) mg/dL AST 11 (5-40) units/L ALT 7 (7-56) units/L Alkaline Phosphatase 30 L (35-129) units/L Total Creatine Kinase 75 (30-135) units/L Troponin T < 0.010 (0.00-0.029) ng/mL Total Protein 6.5 (6.3-8.2) g/dL Albumin 4.3 (3.9-5) g/dL Albumin/Globulin Ratio 2.0 % Urine Color (Yellow) Urine Turbidity (Clear) Urine pH (5.0-7.0) Ur Specific [place] (1.003-1.030) Urine Protein (Negative) mg/dL Urine Glucose (UA) (Negative) mg/dL Urine Ketones (Negative) mg/dL Urine Blood (Negative) Urine Nitrite (Negative) Urine Bilirubin (Negative) Urine Urobilinogen (<2.0) mg/dL Ur Leukocyte Esterase (Negative) Urine WBC (Auto) (0.0-6.0) /HPF Urine RBC (Auto) (0.0-6.0) /HPF U Epithel Cells (Auto) (0-13.0) /HPF Urine Mucus /HPF - EKG Data -: EKG Interpreted by [facility] EKG shows normal: sinus rhythm Rate: normal - EKG Data 08/08/21 21:12 The EKG is interpreted at 20: 33 Sinus rhythm 61 bpm. Normal axis, normal P wave axis, high left ventricular voltage, motion artifact V2. This is an abnormal EKG. This is not a STEMI. - Radiology Data Radiology results: pending, report reviewed, image reviewed CHEST 1 VIEW 08/08/2021 8:23 PM INDICATION / CLINICAL INFORMATION: dyspnea. CO MPARISON: 01/07/2020 FINDINGS: SUPPORT DEVICES: None. HEART / MEDIASTINUM: No significant abnormality. LUNGS / PLEURA: No significant pulmonary or pleural abnormality. No pneumothorax. ADDITIONAL FINDINGS: No significant additional findings. IMPRESSION: 1. No acute findings. Signer Name: Fletcher Sanchez MD Signed: 08/08/2021 9:14 PM Workstation Name: [id number] Critical care attestation.: If time is entered above; I have spent that time in minutes in the direct care of this critically ill patient, excluding procedure time. ED Disposition Clinical Impression: Suspected COVID-19 virus infection, History of syncope, Skin lesion, Encounter for tobacco use cessation counseling, Hypokalemia Disposition: 01 HOME / SELF CARE / HOMELESS Is pt being admited?: No Does the pt Need Aspirin: No Condition: Good Additional Instructions: Laboratory studies today demonstrated no emergent findings. EKG is essentially unremarkable. Chest x-ray is essentially unremarkable. Recommend completion of COVID-19 vaccination series, and outpatient COVID-19 test. Recommend that patient discontinue tobacco consumption. Drink 4 to 6 cups of water per day, advance diet as tolerated, alternate ice packs and heat packs as needed for physical pain. Recommend that patient's home/apartment be checked out/evaluated by an bundle sorter for possible insect infestation and/or bedbugs. Use the permethrin cream as directed, and wash all clothing and linens with hot water and soap. Recommend purchasing a mattress cover [id number]. As patient endorsed a history of loss of consciousness yesterday, she is advised to not drive or operate motor vehicles for the next 6 months, or until cleared to do so by her primary care doctor or bundle packer. Recommend follow-up with a primary care doctor or equipment sales specialist to determine what specific [id number] pain medications patient may take without allergic reactions. Recommend follow-up with a primary care doctor or the aforementioned specialist within the next week. Recommend tobacco cessation. Please return to the emergency room right away with new pain, worsened pain, migration of pain, projectile vomiting, change in mental status, confusion, inability tolerate liquid feeds, new, worsened or different symptoms not present on the initial emergency room evaluation Patient is found to have mild hypokalemia. Increase consumption of foods that are high in potassium, such as banana, avocado, or potato. Prescriptions: Permethrin 5% [Acticin 5% CREAM] 1 applicatio TP ONCE #2 tube Albuterol Sulfate [Albuterol 0.63% NEBS] 0.63 mg IH Q4HR PRN #2 ml PRN Reason: Wheezing hydrOXYzine HCL [Atarax] 25 mg PO Q6HR PRN #15 tablet PRN Reason: Itching Nicotine Polacrilex [Nicotine Gum] 4 mg BC PRN #1 pack Albuterol Sulfate [Proair Respiclick] 90 mcg IH Q4HR PRN #2 aer.pow.ba PRN Reason: Wheezing Referrals: PATRICIA JACKSON MD [Referring] - 3-5 Days [facility] [Provider Group] - 3-5 Days Forms: Work/School Release Form(ED)
[2021-08-08 21:51] VITALS: BP 123/77
[2021-08-08 22:03] LABS: Bilirubin,Urine NEG (Negative); Blood,Urine NEG (Negative); Color,Urine Yellow (Yellow); Mucus,Urine 3+ /HPF; RBC,Urine < 1.0 /HPF (0.0-6.0)
[2021-08-08 22:18] LABS: Basophils # (Auto) 0.1 K/mm3 (0.0-0.1); Basophils % (Auto) 1.1 % (0.0-1.8); Eosinophils # (Auto) 0.1 K/mm3 (0.0-0.4); Eosinophils % (Auto) 2.6 % (0.0-4.3); Hematocrit 39.3 % (30.3-42.9); Hemoglobin 12.6 gm/dl (10.1-14.3); Lymphocytes # (Auto) 1.5 K/mm3 (1.2-5.4); Lymphocytes % (Auto) 33.5 % (13.4-35.0); Mean Corpuscular HGB Conc 32 % (30-34); Mean Corpuscular Volume 88 fl (79-97); Monocytes # (Auto) 0.6 K/mm3 (0.0-0.8); Monocytes % (Auto) 13.7 % (0.0-7.3); Platelet Count 141 K/mm3 (140-440); Red Blood Count 4.45 M/mm3 (3.65-5.03); Red Cell Distribution Width 13.2 % (13.2-15.2)
--- NOTE | 2021-08-08 22:19 | XRay Report ---
CHEST 1 VIEW 08/08/2021 8:23 PM INDICATION / CLINICAL INFORMATION: dyspnea. COMPARISON: 01/07/2020 FINDINGS: SUPPORT DEVICES: None. HEART / MEDIASTINUM: No significant abnormality. LUNGS / PLEURA: No significant pulmonary or pleural abnormality. No pneumothorax. ADDITIONAL FINDINGS: No significant additional findings. IMPRESSION: 1. No acute findings. Signer Name: Fletcher Sanchez MD Signed: 08/08/2021 10:14 PM Workstation Name: [id number]
[2021-08-08 22:27] LABS: INR 0.99 (0.87-1.13)
[2021-08-08 22:42] LABS: Alanine Aminotransferase 7 units/L (7-56); Albumin 4.3 g/dL (3.9-5); Blood Urea Nitrogen 20 mg/dL (7-17); Calcium 8.7 mg/dL (8.4-10.2); Hemolysis Index 2
[2021-08-08 22:48] LABS: BUN/Creatinine Ratio 40
[2021-08-08] MEDS ORDERED: POTASSIUM CHLORIDE ER 20 MEQ TAB PO ONE (22:52)
== END 2021-08-09 00:04 | disposition home or self-care (01) ==
LOC: ED 14:37
DX: L98.9 Disorder of the skin and subcutaneous tissue, unspecified (principal); E87.6 Hypokalemia; Z20.822 Contact with and (suspected) exposure to COVID-19; R79.1 Abnormal coagulation profile; R30.0 Dysuria; J45.909 Unspecified asthma, uncomplicated; Z90.710 Acquired absence of both cervix and uterus; Z88.6 Allergy status to analgesic agent; Z88.8 Allergy status to other drugs, medicaments and biological substances; Z79.899 Other long term (current) drug therapy
CPT/HCPCS: 36415; 71045; 80053; 81001; 82550; 83735; 84443; 84484; 85025; 85610; 93005; 99284; Q0177